=== PATIENT | female | born 1945 | race Caucasian/White ===

== ENCOUNTER 2018-06-22 08:36 | Day surgery (SDC) | payer OTHER, BC ==
--- OUTSIDE RECORDS SUMMARY | 2018-06-22 08:38 | XMS REPORT ---
:1945 [facility] Address [address] [place] [address] [address] [place] [address] Care Team Providers Name Role Phone YUSUF ALVARADO Unavailable Unavailable Problems This patient has no known problems. Allergies, Adverse Reactions, Alerts This patient has no known allergies or adverse reactions. Medications This patient has no known medications. Results Test Description Test Time Test Comments Text Results Atomic Results Result Comments TISSUE EXAM 2017-09-06 Surgical Pathology Report 08:59:00 Case: [id number] Authorizing Provider: Yusuf Alvarado MD Collected: 07/27/2017 1043 Ordering Location: [facility] PERIOPERATIVE Received: 07/27/2017 1103 SERVICES Pathologist: Waylon Regalado MD Specimens: A) - Breast, Right, right breast long stitch lateral, short stitch superior B) - Lymph Node, [place], Right Axilla, sentinel lymph node # 1; ex vivo 17 REASON FOR ADDENDUM: TO REPORT ONCOTYPE DX RESULT.PERFORMED ON [id number] DX RECURRENCE SCORE RESULT : 1210-YEAR RISK OF DISTANT RECURRENCE (CARRION ALONE) : 8%See scanned Oncotype DX result reportAddendum electronically signed by Waylon Regalado MD on 09/06/2017 at 8:59 AMA. 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 - TUMOR LOCATION: 12 O'CLOCK - GREATEST MICROSCOPIC MEASUREMENT : 15 MM - HISTOLOGIC GRADE : 3/3 (3 + 2 + 3) BY ESBR CRITERIA - MITOTIC COUNT: 23 MITOSES PER 10 HPF'S - NO LYMPHOVASCULAR INVASION IS SEEN - SURGICAL MARGINS : NEGATIVE - SUPERFICIAL SUPERIOR MARGIN : 6 MM - ALL OTHERS MARGINS > 10MM - DUCTAL CARCINOMA IN SITU - GREATEST MICROSCOPIC MEASUREMENT : 10 MM - NUCLEAR GRADE : 2/3 BY SBR CRITERIA - GROWTH PATTERN : SOLID - CENTRAL NECROSIS IS IDENTIFIED - ASSOCIATED WITH FOCAL CALCIFICATIONS - SURGICAL MARGINS : NEGATIVE - SUPERFICIAL SUPERIOR MARGIN: 7 MM - ALL OTHER MARGINS > 10MM - BIOPSY SITE CHANGES (CLIP X 1) IDENTIFIED - APOCRINE METAPLASIA - REMOTE SCARRING AND REACTIVE CHANGES - BENIGN BREAST TISSUE ASSOCIATED WITH CALCIFICATIONS - BENIGN SKIN AND NIPPLEB. LYMPH NODE, RIGHT AXILLARY, SENTINEL #1, EX VIVO 17, BIOPSY: - ONE LYMPH NODE, NEGATIVE FOR CARCINOMA (0/1) Signing Pathologist Direct Phone Line: [phone] signed by Waylon Regalado MD on 08/02/2017 at 10:29 AMTUMOR STAGING (PATHOLOGY)Anatomic site of tumor: Right breast Histologic type: Infiltrating ductal carcinoma, no special typeHistologic grade: 3/3 by SBR criteria Tumor size: 15 mm Primary tumor (T): pT1c Lymph node (N): pN0 (sn)Stage grouping: IA Margins: NegativeLYMPH NODE SUMMARY Total number of sentinel lymph nodes: 1Total number of non-sentinel lymph nodes: 0 Total number of positive sentinel lymph nodes: 0INVASIVE CARCINOMA OF THE BREAST (Breast Invasive - All Specimens)CLINICAL Radiologic Finding: Mass or architectural distortionSPECIMEN Procedure: Total mastectomy (including nipple and skin) Lymph Node Sampling: [place] lymph node(s) Specimen Laterality: RightTUMOR Specify Clock Position of Tumor Site: 12 o'clock Presence of Invasive Carcinoma: Histologic Type: Invasive mammary carcinoma of no special type (ductal, not otherwise specified) Histologic Grade ([place] Histologic Score): Glandular (Acinar) / Tubular Differentiation: Score 3 (< 10% of tumor area forming glandular / tubular structures) Nuclear Pleomorphism: Score 2 (Cells larger than normal with open vesicular nuclei, visible nucleoli, and moderate variability in both size and shape) Mitotic Rate: Score 3 (>=8 mitoses per mm2) Overall Grade: Grade 3 (scores of 8 or 9) Ductal Carcinoma In Situ (DCIS): DCIS is present Ductal Carcinoma In Situ (DCIS): Negative for extensive intraductal component (EIC) Estimated Size (extent) of DCIS (greatest dimension using gross and microscopic evaluation) is at Least (mm): 10 mm Architectural Patterns: [place] Architectural Patterns: Solid Nuclear Grade: Grade II (intermediate) Necrosis: Present, central (expansive 'comedo' necrosis) Lobular Carcinoma In Situ (LCIS): Not identified Tumor Size / Focality: Tumor Size: Size of Largest Invasive Carcinoma: Greatest dimension of largest focus of invasion > 1 mm Greatest Dimension (mm): 15 mm Skin: Lymph-Vascular Invasion: Not identified Dermal Lymph-Vascular Invasion: Not identified Microcalcifications: Present in DCIS Microcalcifications: Present in nonneoplastic tissue Treatment Effect: Response to Presurgical (Neoadjuvant) Therapy: No known presurgical therapyMARGINS Invasive Carcinoma: Margins uninvolved by invasive carcinoma Distance from Closest Margin: Distance (specify in mm): 6 Closest Uninvolved Margin: Other (specify margin): superficial superior Ductal Carcinoma In Situ (DCIS): Margins uninvolved by DCIS (DCIS present in specimen) Distance of DCIS from Closest Margin (mm): Distance (specify in mm): 7 mm Closest Uninvolved Margin(s): Other (specify margin): superficial superiorLYMPH NODES Regional Lymph Nodes: [place] Node Status: [place] lymph node biopsy performed Number of [place] Nodes Examined: Specify number: 1 Method of Evaluation of [place] Lymph Node(s): H&E, multiple levels Number of Lymph Node(s) Examined (sentinel and nonsentinel): Specify number: 1STAGE (pTNM) Primary Tumor (Invasive Carcinoma) (pT): pT1c: Tumor > 10 mm but <=20 mm in greatest dimension Modifier: (sn): Only sentinel node(s) evaluated. If 6 or more nodes (sentinel or nonsentinel) are removed, this modifier should not be used. Category (pN): pN0: No regional lymph node metastasis identified histologicallyA. 38035 x 1; 71920 x 1B. 56495 x 1Malignant neoplasm of right breastA. Right breast. B. Right axillary sentinel lymph node #1Specimen A: The specimen is received fresh for intraoperative gross consultation labeled with the patient's name, accession number and "right breast". It consists of a 279 gm, 14 cm from superior to inferior, 17 cm from medial to lateral, and 4.5 cm from superficial to deep, right mastectomy specimen. There is an attached mims-white skin measuring 13 x 5.4 cm. The areola is 3.0 x 2.5 cm. The nipple is everted and measures 0.7 x 0.1 x 0.8 cm. The specimen is oriented with a short stitch designating superior and a long stitch designating lateral.The specimen is serially sectioned from medial to lateral into 11 slices. The cut section shows a mims-white, firm, irregular mass in slices 7 and 8. A wing shaped metal clip is identified in slice 8 in association with the mass. The mass measures 1.5 cm from superior to inferior, 2.8 cm from lateral, and 2 cm from superficial to deep. It is located 0.4 cm from superficial superior, 5 cm from superficial inferior and 2.5 cm from deep margin. The nipple is located in slice #9.The remaining breast parenchyma is composed of 80% adipose and 20% fibrous tissue. No other masses or lesions are seen.Ink code: Superficial superior-blue, superficial inferior-red, deep-black.Section code: Bookkeeping Clerks Supervisor sections are submitted as follows. A1, nipple slice #9 bisected; A2-A4, slice 8, mass to superficial superior margin (A4 area of clip); A5, slice 8 closest deep margin; A6, slice 8 area around the mass; A7, slice 8 area superior to the mass, superficial superior margin; A8, slice 8 closest superficial inferior margin; A9, slice 7 mass to superficial superior margin; A10, slice 7 closest deep margin; A11, slice 7 closest superficial inferior margin; A12, slice 7 fibrous tissue inferior to the mass slice 7; A13, fibrous tissue superior to the mass slice 7 to include superficial superior margin; A14, slice 7 fibrous tissue slice 9 area lateral to the mass; A16, slice 9 fibrous tissue; A17, slice 9 deep margin; A18, fibrous tissue slice 9 fibrous tissue subareolar; A19, slice 6 area medial to the mass; A19, slice 5 random upper inner quadrant; A20, slice 6 random lower inner quadrant; A21, slice 10 upper outer quadrant; A22, slice 7 lower outer quadrant.Specimen B: Received in formalin labeled "lymph node, sentinel, right axilla #1" is a 2.5 x 1.5 x 0.3 cm, pink-mims to yellow, irregular lymph node. The specimen is bisected and entirely submitted in cassettes B1-B2. DB/ew INTRAOPERATIVE GROSS CONSULTATION:BREAST, RIGHT, MASTECTOMY: - MASS AND CLIP IDENTIFIED - CLOSEST SUPERFICIAL SUPERIOR MARGIN APPROXIMATELY 4 MM - REPORTED BY DR. Malena REGALADO TO DR. ALVARADO ON 07/27/17 AT 11:05 A.M.A-B: Performed.[facility], Department of Pathology, [address] [place] [address], [place] [address], SENTINEL NODE 2017-07-27 Reason for FINAL REPORT PATIENT ID: INJECTION, 09:54:00 exam:->right [id number] PROCEDURE: SENTINEL NON-IMAGING breast NODE LOCALIZATION - NON IMAGING INDICATION: Right breast cancer PROTOCOL: A total of 1.2 mCi of Tc-99m tilmanocept was injected in the right breast by the nuclear process engineer. One aliquot was injected subcutaneously in the subareolar area. IMPRESSION: Radiopharmaceutical injection for intraoperative sentinel node localization. Signed: Mark Daugherty MDReport Verified Date/Time: 07/27/2017 09:54:19 Reading Location: [address] Reading Room
--- OUTSIDE RECORDS SUMMARY | 2018-06-22 08:38 | XMS REPORT | Clinical Summary ---
:1945 Author Organization [facility] Address [address] [place] [address] Phone Care Team Providers Name Role Phone Unavailable Primary Care Provider Unavailable Allergies Active Allergy Reactions Severity Noted Date Comments Sulfa (Sulfonamide Other (See Comments) 07/26/2017 Happened in childhood, Antibiotics) was not told what reaction Current Medications Prescription Sig. Disp. Refills Start Date End Date Status losartan (COZAAR) 50 Take 50 mg by Active MG tablet mouth daily. alendronate (FOSAMAX) Take 70 mg by Active 70 MG tablet mouth every 7 days Take in the morning with a full glass of water, on an empty stomach, and do not take anything else by mouth or lie down for the next 30 min. . albuterol HFA Inhale 1 puff by Active (VENTOLIN HFA) 90 mouth via mcg/actuation inhaler inhaler every 6 (six) hours as needed for Wheezing. traMADol (ULTRAM) 50 Take 1 tablet 30 tablet 0 07/28/2017 08/07/2017 mg tablet (50 mg total) by mouth every 6 (six) hours as needed for up to 10 days. Max Daily Amount: 200 mg Active Problems Problem Noted Date Breast mass, right 07/27/2017 Breast cancer (HCC) 07/27/2017 Encounters Date Type Specialty Care Team Description 07/27/2017 - Hospital Encounter General Internal Karma Carter 07/28/2017 Medicine MD Roxane 07/27/2017 Procedure Pass 07/27/2017 Surgery Karma Carter MASTECTOMY,PARTIAL/L MD [place]oxane UMPECTOMY 07/26/2017 Hospital Encounter Pre-Admission Testing 07/26/2017 Anesthesia Event Jt Cedillo MD after 06/21/2017 Social History Tobacco Use Types Packs/Day Years Used Date Current Every Day Smoker 0.5 Smokeless Tobacco: Never Used Tobacco Cessation: Ready to Quit: Yes Comments: HANDOUT TO BE GIVEN DOS Alcohol Use Drinks/Week oz/Week Comments No Sex Assigned at Date Recorded Not on file Last Filed Vital Signs Vital Sign Reading Time Taken Blood Pressure 122/66 07/28/2017 8:00 AM CDT Pulse 73 07/28/2017 8:00 AM CDT Temperature 36.6 C (97.8 F) 07/28/2017 8:00 AM CDT Respiratory Rate 17 07/28/2017 8:00 AM CDT Oxygen Saturation 94% 07/28/2017 8:00 AM CDT Inhaled Oxygen Concentration - - Weight 58.2 kg (128 lb 6.4 oz) 07/27/2017 7:02 AM CDT Height 175.3 cm (5' 9") 07/27/2017 7:02 AM CDT Body Mass Index 18.96 07/27/2017 7:02 AM CDT Plan of Treatment Not on file Procedures Procedure Name Priority Date/Time Associated Diagnosis Comments MASTECTOMY,PARTIAL/LUM 07/27/2017 9:30 AM Malignant neoplasm of PECTOMY CDT right female breast, unspecified estrogen receptor status, unspecified site of breast (HCC) after 06/21/2017 Results INTRAOPERATIVE PATH REPORT - SCAN (08/05/2017 1:11 PM)Tissue Exam (07/27/2017 10:43 AM) Component Value Ref Range Case Report Surgical Pathology Report Case: [id number] Authorizing Provider:Karma Carter MD Collected: 07/27/2017 1043 Ordering Location: [facility] PERIOPERATIVE Received: 07/27/2017 1103 SERVICES Pathologist: Waylon Regalado MD Specimens: A) - Breast, Right, right breast long stitch lateral, short stitch superior B) - Lymph Node, [place], Right Axilla, sentinel lymph node # 1; ex vivo 17 ADDENDUM REASON FOR ADDENDUM: TO REPORT ONCOTYPE DX RESULT. PERFORMED ON [id number] ONCOTYPE DX RECURRENCE SCORE RESULT : 12 10-YEAR RISK OF DISTANT RECURRENCE (CARRION ALONE) : 8% See scanned Oncotype DX result report DIAGNOSIS A. BREAST, RIGHT, TOTAL MASTECTOMY: - INFILTRATING DUCTAL [...] ASSOCIATED WITH CALCIFICATIONS - BENIGN SKIN AND NIPPLE B. LYMPH NODE, RIGHT AXILLARY, SENTINEL #1, EX VIVO 17, BIOPSY: - ONE LYMPH NODE, NEGATIVE FOR CARCINOMA (0/1) Signing Pathologist Direct Phone Line: [phone] COMMENT TUMOR STAGING (PATHOLOGY) Anatomic site of tumor: Right breast Histologic type: Infiltrating ductal carcinoma, no special type Histologic grade: 3/3 by SBR criteria Tumor size:15 mm Primary tumor (T): pT1c Lymph node (N): pN0 (sn) Stage grouping: IA Margins: Negative LYMPH NODE SUMMARY Total number of sentinel lymph nodes: 1 Total number of non-sentinel lymph nodes: 0 Total number of positive sentinel lymph nodes: 0 SYNOPTIC REPORT INVASIVE CARCINOMA OF THE BREAST(Breast Invasive - All Specimens) CLINICAL Radiologic Finding:Mass or architectural distortion SPECIMEN Procedure:Total mastectomy (including nipple and skin) Lymph Node Sampling:[place] lymph node(s) Specimen Laterality:Right TUMOR Specify Clock Position of Tumor Site:12 o'clock Presence of Invasive Carcinoma: Histologic Type:Invasive mammary carcinoma of no special type (ductal, not otherwise specified) Histologic Grade ([place] Histologic Score): Glandular (Acinar) / Tubular Differentiation:Score 3 (< 10% of tumor area forming glandular / tubular structures) Nuclear Pleomorphism:Score 2 (Cells larger than normal with open vesicular nuclei, visible nucleoli, and moderate variability in both size and shape) Mitotic Rate:Score 3 (>=8 mitoses per mm2) Overall Grade:Grade 3 (scores of 8 or 9) Ductal Carcinoma In Situ (DCIS):DCIS is present Ductal Carcinoma In Situ (DCIS):Negative for extensive intraductal component (EIC) Estimated Size (extent) of DCIS (greatest dimension using gross and microscopic evaluation) is at Least (mm):10 mm Architectural Patterns:[place] Architectural Patterns:Solid Nuclear Grade:Grade II (intermediate) Necrosis:Present, central (expansive 'comedo' necrosis) Lobular Carcinoma In Situ (LCIS):Not identified Tumor Size / Focality: Tumor Size: Size of Largest Invasive Carcinoma:Greatest dimension of largest focus of invasion > 1 mm Greatest Dimension (mm):15 mm Skin: Lymph-Vascular Invasion:Not identified Dermal Lymph-Vascular Invasion:Not identified Microcalcifications:Present in DCIS Microcalcifications:Present in nonneoplastic tissue Treatment Effect: Response to Presurgical (Neoadjuvant) Therapy: No known presurgical therapy MARGINS Invasive Carcinoma:Margins uninvolved by invasive carcinoma Distance from Closest Margin:Distance (specify in mm): 6 Closest Uninvolved Margin:Other (specify margin): superficial superior Ductal Carcinoma In Situ (DCIS):Margins uninvolved by DCIS ( DCIS present in specimen) Distance of DCIS from Closest Margin (mm):Distance (specify in mm): 7 mm Closest Uninvolved Margin(s):Other (specify margin): superficial superior LYMPH NODES Regional Lymph Nodes: [place] Node Status:[place] lymph node biopsy performed Number of [place] Nodes Examined:Specify number: 1 Method of Evaluation of [place] Lymph Node(s):H&E, multiple levels Number of Lymph Node(s) Examined (sentinel and nonsentinel): Specify number: 1 STAGE (pTNM) Primary Tumor (Invasive Carcinoma) (pT):pT1c: Tumor > 10 mm but <=20 mm in greatest dimension Modifier:(sn): Only sentinel node(s) evaluated. If 6 or more nodes (sentinel or nonsentinel) are removed, this modifier should not be used. Category (pN):pN0: No regional lymph node metastasis identified histologically CPT Code(s) A. 50790 x 1; 42341 x 1 B. 54277 x 1 CLINICAL HISTORY Malignant neoplasm of right breast SPECIMEN SOURCE A. Right breast. B. Right axillary sentinel lymph node #1 GROSS DESCRIPTION Specimen A: The specimen is received fresh for intraoperative gross consultation labeled with the patient's name,accession number and "right breast". It consists of [...] designating superior and a long stitch designating lateral. The specimen is serially sectioned from medial to lateral into 11 slices. The cut section shows a mims-white, firm, irregular mass in slices 7 and 8. A wing shaped metal clip is identified in slice 8 in association with the mass. The mass measures 1.5 cm from superior to inferior , 2.8 cm from lateral, and 2 cm from superficial to deep. It is located 0.4 cm from superficial superior, 5 cm from superfici al inferior and 2.5 cm from deep margin. The nipple is located in slice #9. The remaining breast parenchyma is composed of 80% adipose and 20% fibrous tissue. No other masses or lesions are seen. Ink code: Superficial superior-blue, superficial inferior-red, deep-black. Section code: Electrical Panel Builder sections are submitted as follows. A1, nipple slice #9 bisected; A2-A4, slice 8, mass to superficial superior margin (A4 area of clip); A5, slice 8 closest deep margin; A6, slice 8 area around the mass; A7, slice 8 area superior to the mass, superficial superior margin; A8, slice 8 closest superficial inferior margin; A9 , slice 7 mass to superficial superior margin; A10, s lice 7 closest deep margin; A11, slice 7 closest superficial inferior margin ; A12, slice 7 fibrous tissue inferior to the mass slice 7; A13, fibrous tissue superior to the mass slice 7 to include superf icial superior margin; A14, slice 7 fibrous tissue slice 9 area lateral to the mass; A16, slice 9 fibrous tissue; A17, slice 9 deep margin; A18, fibrous tissue slice 9 fibrous tissue subareolar; A19, sl ice 6 area medial to the mass; A19, slice 5 random upper inner quadrant; A20 , slice 6 random lower inner quadrant; A21, slice 10 upper outer quadrant; A22, slice 7 lower outer quadrant. Specimen B: Received in formalin labeled "lymph node, sentinel, right axilla #1" is a 2.5 x 1.5 x 0.3 cm, pink-mims to yellow, irregular lymph node. The specimen is bisected and entirely submitted in cassettes B1-B2. DB/ew INTRAOPERATIVE CONSULTATION INTRAOPERATIVE GROSS CONSULTATION: BREAST, RIGHT, MASTECTOMY: - MASS AND CLIP IDENTIFIED - CLOSEST SUPERFICIAL SUPERIOR MARGIN APPROXIMATELY 4 MM - REPORTED BY DR. Malena REGALADO TO ON 07/27/17 AT 11:05 A.M. MICROSCOPIC DESCRIPTION A-B: Performed. Professional component was performed [facility], at Department of Pathology, [address] [place] [address], [place] [address], Specimen Performing Laboratory Tissue - Breast, Right; Tissue - Lymph [facility] Node, [place], Right Axilla [address] [place] [id number] ANESTHESIA PERIPHERAL BLOCK (07/27/2017 9:49 AM) Narrative Franky Forman MD 07/27/20179:49 AM Peripheral Block Patient location during procedure: pre-op Start time: 07/27/2017 9:20 AM End time: 07/27/2017 9:23 AM Reason for block: procedure for pain, at surgeon's request and post-op pain management Staffing Anesthesiologist: EJ MELGAR Preanesthetic Checklist Completed: patient identified, site marked, surgical consent, pre-op evaluation, timeout performed, IV checked, risks and benefits discussed and monitors and equipment checked Peripheral Block Patient position: supine Prep: ChloraPrep Patient monitoring: operations representative, heart rate and continuous pulse ox Anesthesia block type: PECS 1 and 2. Laterality: right Injection technique: single-shot Procedures: ultrasound guided Local infiltration: ropivicaine Infiltration strength: 0.5 % Dose: 30 mL Additives: 100mcg Epi Needle Needle type: short-bevel (Pajunk) Needle gauge: 22. Needle length: 75. Assessment Injection assessment: negative aspiration for heme, no paresthesia on injection, local visualized surrounding nerve on ultrasound and incremental injection Paresthesia pain: none Heart rate change: no Slow fractionated injection: yes Additional Notes PT tolerated the procedure well Procedure Note Franky Forman MD - 07/27/2017 9:47 AM CDT Peripheral Block Patient location during procedure: pre-op Start time: 07/27/2017 9:20 AM End time: 07/27/2017 9:23 AM Reason for block: procedure for pain, at surgeon's request and post-op pain management Staffing Anesthesiologist: EJ MELGAR Preanesthetic Checklist Completed: patient identified, site marked, surgical consent, pre-op evaluation , timeout performed, IV checked, risks and benefits discussed and monitors and equipment checked Peripheral Block Patient position: supine Prep: ChloraPrep Patient monitoring: operations representative, heart rate and continuous pulse ox Anesthesia block type: PECS 1 and 2. Laterality: right Injection technique: single-shot Procedures: ultrasound guided Local infiltration: ropivicaine Infiltration strength: 0.5 % Dose: 30 mL Additives: 100mcg Epi Needle Needle type: short-bevel (Pajunk) Needle gauge: 22. Needle length: 75. Assessment Injection assessment: negative aspiration for heme, no paresthesia on injection , local visualized surrounding nerve on ultrasound and incremental injection Paresthesia pain: none Heart rate change: no Slow fractionated injection: yes Additional Notes PT tolerated the procedure well NM sentinel node study (injection only) (07/27/2017 9:35 AM) Specimen Performing Laboratory [facility] Narrative FINAL REPORT PROCEDURE: SENTINEL NODE LOCALIZATION - NON IMAGING INDICATION: Right breast cancer PROTOCOL: A total of 1.2 mCi of Tc-99m tilmanocept was injected in the right breast by the nuclear radiologist.One aliquot was injected subcutaneously in the subareolar area. IMPRESSION: Radiopharmaceutical injection for intraoperative sentinel node localization. Signed: Mark Daugherty MD Report Verified Date/Time:07/27/2017 09:54:19 Reading Location: [address] Reading Room Procedure Note Interface, External Ris In - 07/27/2017 9:56 AM CDT FINAL REPORT PROCEDURE: SENTINEL NODE LOCALIZATION - NON IMAGING INDICATION: Right breast cancer PROTOCOL: A total of 1.2 mCi of Tc-99m tilmanocept was injected in the right breast by the nuclear radiologist. One aliquot was injected subcutaneously in the subareolar area. IMPRESSION: Radiopharmaceutical injection for intraoperative sentinel node localization. Signed: Mark Daugherty MD Report Verified Date/Time: 07/27/2017 09:54:19 Reading Location: [address] [facility] Reading Room after 06/21/2017
[2018-06-22] MEDS ORDERED: Ringers Lactate 1,000 ML IV ONE (09:03)
[2018-06-22] MEDS ORDERED: LIDOCAINE 1% MPF 2 ML AMPULE ONE (11:01)
[2018-06-22] MEDS ORDERED: PROPOFOL 200 MG/20 ML VIAL IV ONE ×2 (11:01)
--- NOTE | 2018-06-22 11:53 | ENDO RPT ---
[address], [address] COLONOSCOPY PROCEDURE REPORT EXAM DATE: 06/22/2018 PATIENT NAME: Franci Olguin MR #: [id number] BIRTHDATE: 1945 ATTENDING: Jackson Brar Dr STATUS: outpatient EXECUTIVE MARKETING ASSISTANT: Jayde Paige RN and Maryam Larson INDICATIONS: The patient is a 72 yr old Female here for a colonoscopy due to positive Cologuard, personal history of colon polyps and family history of PROCEDURE PERFORMED: Colonoscopy with biopsy - cold polypectomy and Colonoscopy with snare polypectomy MEDICATIONS: Per Anesthesia. ESTIMATED BLOOD LOSS: None CONSENT: The patient understands the risks and benefits of the procedure and understands that these risks include, but are not limited to: sedation, allergic reaction, infection, perforation and/or bleeding. Alternative means of evaluation and treatment include, among others: physical exam, x-rays, and/or surgical intervention. The patient elects to proceed with this endoscopic procedure. DESCRIPTION OF PROCEDURE: During intra-op preparation period all mechanical medical equipment was checked for proper function. Hand hygiene and appropriate measures for infection prevention was taken. Procedure, possible complications, alternatives including, but not limited to possibility of bleeding, perforation, tear, infection, sepsis, need for surgery, need for blood transfusion, were explained to the patient. After the risks, benefits and alternatives of the procedure were thoroughly explained, Informed consent was verified, confirmed and timeout was successfully executed by the treatment team. The patient was placed in the left lateral position. A digital rectal exam was performed and revealed no abnormalities of the rectum. After appropriate level of anesthesia, the scope was passed. The EC-[id number] ([id number]) endoscope was introduced through the anus and advanced to the terminal ileum which was intubated for a short distance. The quality of the prep was good. The instrument was then slowly withdrawn as the colon was fully examined. Scope withdrawal time was 8 minutes. COLON FINDINGS: A smooth flat polyp measuring 4 mm in size was found at the cecum. A biopsy was performed using cold forceps. A smooth flat polyp measuring 7 mm in size was found. A polypectomy was performed with a cold snare. A smooth flat polyp measuring 11 mm in size was found in the descending colon. A polypectomy was performed with a cold snare. Moderate sized internal hemorrhoids were found. Retroflexed views revealed medium hemorrhoids. The scope was then completely withdrawn from the patient and the procedure terminated. ADVERSE EVENTS: There were no complications. IMPRESSIONS: 1. 4 mm flat polyp at the cecum; biopsy was performed using cold forceps 2. 7 mm flat polyp, polypectomy was performed with a cold snare 3. 11 mm flat polyp measuring 11 mm in size in the descending colon; polypectomy was performed with a cold snare 4. Moderate sized internal hemorrhoids 5. Intubation to terminal ileum RECOMMENDATIONS: 1. await biopsy results 2. avoid NSAIDS for 2 weeks RECALL: Return in 1 year(s) for Colonoscopy. Jackson Barr Dr eSigned: Jackson Barr Dr 06/22/2018 11:30 AM cc: Rob Rivera CPT CODES: ICD9 CODES: 211.3 Benign neoplasm of colon PATIENT NAME: Franci Olguin MR#: [id number]
[2018-06-22 12:19] VITALS: TEMP 97.8
[2018-06-22 12:20] VITALS: BP 131/81; O2SAT 99
== END 2018-06-22 12:05 | disposition home or self-care (01) ==
LOC: ENDO 08:36
PROVIDERS: ATTEND Internal Medicine Gastroenterology
PROC: 0DBM8ZX Excision of Descending Colon, Via Natural or Artificial Opening Endoscopic, Diagnostic (ICD-10-PCS; 2018-06-22)
PROC: 0DBH8ZX Excision of Cecum, Via Natural or Artificial Opening Endoscopic, Diagnostic (ICD-10-PCS; principal; 2018-06-22 12:45)
DX: D12.0 Benign neoplasm of cecum (principal); D12.4 Benign neoplasm of descending colon; K64.8 Other hemorrhoids; I10 Essential (primary) hypertension; J44.9 Chronic obstructive pulmonary disease, unspecified; M19.90 Unspecified osteoarthritis, unspecified site; F17.200 Nicotine dependence, unspecified, uncomplicated; Z86.010 Personal history of colon polyps; Z85.3 Personal history of malignant neoplasm of breast; Z88.2 Allergy status to sulfonamides; Z80.0 Family history of malignant neoplasm of digestive organs
CPT/HCPCS: 45380; 45385; 88305; J2001

== ENCOUNTER 2018-10-15 15:57 | Emergency (ER) | payer OTHER, BC ==
--- OUTSIDE RECORDS SUMMARY | 2018-10-15 15:59 | XMS REPORT ---
:1945 [facility] Address [address] [place] [address] Dr. Giles [address] [place] [id number] Care Team Providers Name Role Phone YUSUF ALVARADO Unavailable Unavailable Problems This patient has no known problems. Allergies, Adverse Reactions, Alerts This patient has no known allergies or adverse reactions. Medications This patient has no known medications. Results Test Description Test Time Test Comments Text Results Atomic Results Result Comments TISSUE EXAM 2017-09-06 Surgical Pathology Report 08:59:00 Case: [id number] Authorizing Provider: Yusuf Alvarado MD Collected: 07/27/2017 1043 Ordering Location: [facility] Received: 07/27/2017 1103 SERVICES Pathologist: Waylon Regalado MD Specimens: A) - Breast, Right, right breast long stitch lateral, short stitch superior B) - Lymph Node, Marion, Right Axilla, sentinel lymph node # 1; ex vivo 17 REASON FOR ADDENDUM: TO REPORT ONCOTYPE DX RESULT.PERFORMED ON [id number] DX RECURRENCE SCORE RESULT : 1210-YEAR RISK [...] CARCINOMA (0/1) Signing Pathologist Direct Phone Line: [phone] signed by Waylon Regalado MD on 08/02/2017 [...] (including nipple and skin) Lymph Node Sampling: Marion lymph node(s) Specimen Laterality: RightTUMOR Specify Clock Position of Tumor Site: 12 o'clock Presence of Invasive Carcinoma: Histologic Type: Invasive mammary carcinoma of no special type (ductal, not otherwise specified) Histologic Grade ([place] Histologic Score): Glandular (Acinar) / Tubular Differentiation: [...] margin): superficial superiorLYMPH NODES Regional Lymph Nodes: Marion Node Status: Marion lymph node biopsy performed Number of Marion Nodes Examined: Specify number: 1 Method of Evaluation of Marion Lymph Node(s): H&E, multiple levels Number of [...] No regional lymph node metastasis identified histologicallyA. 11799 x 1; 53937 x 1B. 34498 x 1Malignant neoplasm of right breastA. Right [...] code: Superficial superior-blue, superficial inferior-red, deep-black.Section code: Structural Steel Worker Apprentice sections are submitted as follows. A1, nipple [...] DR. ALVARADO ON 07/27/17 AT 11:05 A.M.A-B: Performed.[facility], Department of Pathology, [address] [place] [address], [facility] [place] [address], SENTINEL NODE 2017-07-27 Reason for FINAL REPORT PATIENT ID: INJECTION, 09:54:00 exam:->right [id number] PROCEDURE: SENTINEL NON-IMAGING breast NODE LOCALIZATION - NON IMAGING INDICATION: Right breast cancer PROTOCOL: A total of 1.2 mCi of Tc-99m tilmanocept was injected in the right breast by the pet technologist. One aliquot was injected subcutaneously in the subareolar area. IMPRESSION: Radiopharmaceutical injection for intraoperative sentinel node localization. Signed: Mark Daugherty MDReport Verified Date/Time: 07/27/2017 09:54:19 Reading Location: [address] Reading Room
--- OUTSIDE RECORDS SUMMARY | 2018-10-15 15:59 | XMS REPORT | Clinical Summary ---
:1945 Author Organization [facility] Address [address] [place] [address] Care Team Providers Name Role Phone Rob Rivera Primary Care Provider Allergies Active Allergy Reactions Severity Noted Date Comments Sulfa (Sulfonamide Other (See Comments) 07/26/2017 Happened in childhood, Antibiotics) was not told what reaction Medications Medication Sig Dispensed Refills Start Date End Date Status losartan (COZAAR) 50 Take 50 mg by 0 Active MG tablet mouth daily. alendronate (FOSAMAX) Take 70 mg by 0 Active 70 MG tablet mouth every 7 days Take in the morning with a full glass of water, on an empty stomach, and do not take anything else by mouth or lie down for the next 30 min. . albuterol HFA Inhale 1 puff by 0 Active (VENTOLIN HFA) 90 mouth via inhaler mcg/actuation inhaler every 6 (six) hours as needed for Wheezing. Active Problems Problem Noted Date Breast mass, right 07/27/2017 Breast cancer 07/27/2017 Social History Tobacco Use Types Packs/Day Years Used Date Current Every Day Smoker 0.5 Smokeless Tobacco: Never Used Tobacco Cessation: Ready to Quit: Yes Comments: HANDOUT TO BE GIVEN DOS Alcohol Use Drinks/Week oz/Week Comments No Sex Assigned at Date Recorded Not on file Job Start Date Occupation Industry Not on file Not on file Not on file Travel History Travel Start Travel End No recent travel history available. Last Filed Vital Signs Not on file Plan of Treatment Not on file Results Not on fileafter 10/14/2017 Insurance Payer Benefit Plan / Subscriber ID Type Phone Address Group MEDICARE MEDICARE A B xxxxxxxxxx Medicare BLUE CROSS/BLUE BCBS INDEMNITY [place] xxxxxxxxxxxx PPO [phone] [address] [place] [address] Advance Directives For more information, please contact:[place] [id number] [place], [place] [phone] Code Status Date Activated Date Inactivated Comments Full Code 07/27/2017 6:46 AM 07/28/2017 1:44 PM This code status was determined by: Patient
[2018-10-15] MEDS ORDERED: ACETAMINOPHEN 500 MG TAB ONE (19:52)
--- NOTE | 2018-10-15 20:29 | RAD REPORT ---
EXAM DESCRIPTION: RAD - Ankle Right 3 View - 10/15/2018 8:18 pm CLINICAL HISTORY: Right ankle pain status post fall FINDINGS: A mildly displaced spiral fracture involves the lateral malleolus. No dislocation seen
--- NOTE | 2018-10-15 21:25 | ER ---
Nurse's Notes [facility] Name: Franci Olguin Age: 73 yrs Sex: Female : 1945 Arrival Date: 10/15/2018 Time: 16:00 Bed 8 Private MD: Rob Rivera V Diagnosis: Right distal fibular fracture Presentation: 10/15 16:17 Presenting complaint: Patient states: Reports right ankle pain and swelling, and aj episode of syncope while grocery shopping today at 1300. Patient evaluated by EMS on scene. Transition of care: patient was not received from another setting of care. Onset of symptoms was October 15, 2018. Risk Assessment: Do you want to hurt yourself or someone else? Patient reports no desire to harm self or others. Initial Sepsis Screen: Does the patient meet any 2 criteria? No. Patient's initial sepsis screen is negative. Does the patient have a suspected source of infection? No. Patient's initial sepsis screen is negative. Care prior to arrival: None. 16:17 Method Of Arrival: Ambulatory 16:17 Acuity: REI 3 Triage Assessment: 16:20 General: Appears in no apparent distress. comfortable, Behavior is calm, cooperative, aj appropriate for age. Pain: Complains of pain in right ankle and anterior aspect of right ankle. Neuro: Level of Consciousness is awake, alert, obeys commands, Oriented to person, place, time, situation, Appropriate for age. Respiratory: No deficits noted. Airway is patent Respiratory effort is even, unlabored, Respiratory pattern is symmetrical, tachypnea the patient has mild shortness of breath. Derm: Skin is intact, is healthy with good turgor, Skin is pink, warm \T\ dry. normal. Musculoskeletal: Reports pain in right ankle. Historical: - Allergies: 16:20 Sulfa (Sulfonamide Antibiotics); aj - Home Meds: 16:20 losartan oral oral [Active]; letrozole 2.5 mg oral tab 1 tab once daily [Active]; aj ellindrate [Active]; Ventolin Rotahaler/Rotacaps Inhl [Active]; - PMHx: 16:20 COPD; Hypertension; aj - PSHx: 16:20 ; Tonsillectomy; Appendectomy; Adenoids; Lumpectomy; isthmusectomy; aj Mastectomy, Right; - Immunization history:: Adult Immunizations up to date. - Social history:: Smoking status: Patient uses tobacco products, smokes one pack cigarettes per day. - Ebola Screening: : Patient negative for fever greater than or equal to 101.5 degrees Fahrenheit, and additional compatible Ebola Virus Disease symptoms Patient denies exposure to infectious person Patient denies travel to an Ebola-affected area in the 21 days before illness onset No symptoms or risks identified at this time. - Family history:: not pertinent. - Hospitalizations: : No recent hospitalization is reported. Screenin:46 Abuse screen: Denies threats or abuse. Nutritional screening: No deficits noted. jd3 Tuberculosis screening: No symptoms or risk factors identified. Fall Risk Fall in past 12 months (25 points). Ambulatory Aid- None/Bed Rest/Nurse Assist (0 pts). Gait- Normal/Bed Rest/Wheelchair (0 pts) Mental Status- Oriented to own ability (0 pts). Total Prince Fall Scale indicates Low Risk Score (25-44 pts). Fall prevention measures have been instituted. Side Rails Up X 2 Placed close to Nursing Station Frequent Obs/Assesments occuring Family Present and informed to notify staff if they need to leave bedside. Assessment: 19:23 General: Appears in no apparent distress. uncomfortable, Behavior is calm, cooperative, jd3 appropriate for age. Pain: Complains of pain in right ankle Quality of pain is described as aching. Neuro: Level of Consciousness is awake, alert, obeys commands, Oriented to person, place, time, situation, Appropriate for age Reports a syncopal episode. Cardiovascular: Capillary refill < 3 seconds Patient's skin is warm and dry. Respiratory: Airway is patent Respiratory effort is even, unlabored, Respiratory pattern is regular, symmetrical, Breath sounds are clear bilaterally. GI: No signs and/or symptoms were reported involving the gastrointestinal system. Abdomen is round. : No signs and/or symptoms were reported regarding the genitourinary system. EENT: No signs and/or symptoms were reported regarding the EENT system. Derm: Skin is intact, Skin is dry, Skin is normal, Skin temperature is warm. Musculoskeletal: Circulation, motion, and sensation intact. Range of motion: limited in right ankle. 20:58 Reassessment: Patient appears in no apparent distress at this time. Patient and/or jd3 family updated on plan of care and expected duration. Pain level reassessed. Patient is alert, oriented x 3, equal unlabored respirations, skin warm/dry/pink. Vital Signs: 16:20 BP 189 / 112; Pulse 96; Resp 23; Temp 98.0; Pulse Ox 97% on R/A; Weight 55.34 kg; aj Height 5 ft. 7 in. (170.18 cm); 19:47 BP 155 / 97; Pulse 75; Resp 18 S; Pulse Ox 96% on R/A; jd3 20:58 BP 153 / 92; Pulse 74; Resp 15 S; Pulse Ox 100% on R/A; jd3 21:26 BP 153 / 106; Pulse 96; Resp 18; Temp 98.5(O); Pulse Ox 97% on R/A; mw2 16:20 Body Mass Index 19.11 (55.34 kg, 170.18 cm) aj ED Course: 16:00 Patient arrived in ED. mr 16:01 Rob Rivera MD is Private Physician. mr 16:19 Triage completed. aj 16:20 Arm band placed on right wrist. Patient placed in waiting room, Patient notified of wait time. X-ray ordered. 19:09 Jackson Doe MD is Attending Physician. wa 19:18 Desean Ceron RN is Primary Nurse. jd3 19:46 Patient has correct armband on for positive identification. Placed in gown. Bed in low jd3 position. Call light in reach. Side rails up X2. Adult w/ patient. 20:09 X-ray completed. Portable x-ray completed in exam room. Patient tolerated procedure sg4 well. 20:10 XRAY Ankle RIGHT 3 view In Process Unspecified. EDMS 20:10 XRAY Ankle RIGHT 3 view Sent. jd3 21:24 Manuel Wong MD is Referral Physician. wa 21:41 No provider procedures requiring assistance completed. Patient did not have IV access jd3 during this emergency room visit. Administered Medications: 19:44 Not Given (Patient Refused): Tylenol 1000 mg PO once jd3 Outcome: 21:25 Discharge ordered by . wa 21:42 Discharged to home ambulatory. jd3 21:42 Condition: stable 21:42 Discharge instructions given to patient, family, Instructed on discharge instructions, follow up and referral plans. Demonstrated understanding of instructions, follow-up care. 21:43 Patient left the ED. jd3 Signatures: Dispatcher [employer] Mayela Manrique RN RN aj Dustin, Monique mr Brook, MD MD kristan Paz Jonathon, RN RN jd3 [place]brook, Brigette lynn Sivan Stone 4 Corrections: (The following items were deleted from the chart) 19:26 19:23 Musculoskeletal: Circulation, motion, and sensation intact. Range of motion: jd3 intact in all extremities, jd3
--- NOTE | 2018-10-15 21:25 | EDPHYS ---
Physician Documentation [facility] Name: Franci Olguin Age: 73 yrs Sex: Female : 1945 Arrival Date: 10/15/2018 Time: 16:00 Bed 8 Private MD: Rob Rivera V ED Physician Jackson Doe HPI: 10/15 19:23 This 73 yrs old Female presents to ER via Ambulatory with complaints of wa Fainting, Ankle Swelling. 19:23 The patient presents with an injury, pain, that is acute, swelling, tenderness. The wa complaints affect the right ankle. Onset: The symptoms/episode began/occurred today, In the afternoon. Context: The problem was sustained at a store, resulted from the patient falling, while walking, The mechanism of injury is unknown. The patient can partially bear weight on the affected extremity. the patient is able to ambulate, pt states was at [employer] walking around long time looking of on sale items. h/o COPD. at check out, had a syncopal episode. states got dizzy right before it occurred. denies chest pain or SOB. denies dizziness or other symptoms after the episode. denies chest pain, SOB, dizziness or feeling faint at the moment. only c/o right ankle swelling and pain. Associated signs and symptoms: Pertinent negatives: fever, nausea, vomiting, weakness. Modifying factors: The symptoms are alleviated by nothing, the symptoms are aggravated by weight bearing. Severity of symptoms: At their worst the symptoms were moderate, in the emergency department the symptoms are unchanged. The patient has not experienced similar symptoms in the past. The patient has not recently seen a physician. as noted above. Historical: - Allergies: 16:20 Sulfa (Sulfonamide Antibiotics); aj - Home Meds: 16:20 losartan oral oral [Active]; letrozole 2.5 mg oral tab 1 tab once daily [Active]; aj ellindrate [Active]; Ventolin Rotahaler/Rotacaps Inhl [Active]; - PMHx: 16:20 COPD; Hypertension; aj - PSHx: 16:20 ; Tonsillectomy; Appendectomy; Adenoids; Lumpectomy; isthmusectomy; aj Mastectomy, Right; - Immunization history:: Adult Immunizations up to date. - Social history:: Smoking status: Patient uses tobacco products, smokes one pack cigarettes per day. - Ebola Screening: : Patient negative for fever greater than or equal to 101.5 degrees Fahrenheit, and additional compatible Ebola Virus Disease symptoms Patient denies exposure to infectious person Patient denies travel to an Ebola-affected area in the 21 days before illness onset No symptoms or risks identified at this time. - Family history:: not pertinent. - Hospitalizations: : No recent hospitalization is reported. ROS: 19:32 Constitutional: Negative for fever, chills, and weight loss, Eyes: Negative for injury, wa pain, redness, and discharge, ENT: Negative for injury, pain, and discharge, Neck: Negative for injury, pain, and swelling, Cardiovascular: Negative for chest pain, palpitations, and edema, Respiratory: Negative for shortness of breath, cough, wheezing, and pleuritic chest pain, Abdomen/GI: Negative for abdominal pain, nausea, vomiting, diarrhea, and constipation, Back: Negative for injury and pain, : Negative for injury, bleeding, discharge, and swelling, Skin: Negative for injury, rash, and discoloration, Psych: Negative for depression, anxiety, suicide ideation, homicidal ideation, and hallucinations. 19:32 MS/extremity: Positive for pain, swelling, tenderness, of the right ankle. 19:32 Neuro: Positive for syncope, Negative for altered mental status, dizziness, seizure activity, speech changes, visual changes, weakness. 19:32 All other systems are negative. Exam: 19:33 Constitutional: This is a well developed, well nourished patient who is awake, alert, wa and in no acute distress. Head/Face: Normocephalic, atraumatic. Eyes: Pupils equal round and reactive to light, extra-ocular motions intact. Lids and lashes normal. Conjunctiva and sclera are non-icteric and not injected. Cornea within normal limits. Periorbital areas with no swelling, redness, or edema. ENT: Nares patent. No nasal discharge, no septal abnormalities noted. Tympanic membranes are normal and external auditory canals are clear. Oropharynx with no redness, swelling, or masses, exudates, or evidence of obstruction, uvula midline. Mucous membranes moist. Neck: Trachea midline, no thyromegaly or masses palpated, and no cervical lymphadenopathy. Supple, full range of motion without nuchal rigidity, or vertebral point tenderness. No Meningismus. Chest/axilla: Normal chest wall appearance and motion. Nontender with no deformity. No lesions are appreciated. Cardiovascular: Regular rate and rhythm with a normal S1 and S2. No gallops, murmurs, or rubs. Normal PMI, no JVD. No pulse deficits. Respiratory: Lungs have equal breath sounds bilaterally, clear to auscultation and percussion. No rales, rhonchi or wheezes noted. No increased work of breathing, no retractions or nasal flaring. Abdomen/GI: Soft, non-tender, with normal bowel sounds. No distension or tympany. No guarding or rebound. No evidence of tenderness throughout. Back: No spinal tenderness. No costovertebral tenderness. Full range of motion. Skin: Warm, dry with normal turgor. Normal color with no rashes, no lesions, and no evidence of cellulitis. Psych: Awake, alert, with orientation to person, place and time. Behavior, mood, and affect are within normal limits. 19:33 Musculoskeletal/extremity: Extremities: grossly normal except: noted in the right ankle: pain, swelling, tenderness, tenderness, R lateral malleolus. no deformity. tender. 19:34 Neuro: Orientation: is normal, Mentation: is normal, Memory: is normal, Cranial nerves: wa grossly normal, Motor: is normal. Vital Signs: 16:20 BP 189 / 112; Pulse 96; Resp 23; Temp 98.0; Pulse Ox 97% on R/A; Weight 55.34 kg; aj Height 5 ft. 7 in. (170.18 cm); 19:47 BP 155 / 97; Pulse 75; Resp 18 S; Pulse Ox 96% on R/A; jd3 20:58 BP 153 / 92; Pulse 74; Resp 15 S; Pulse Ox 100% on R/A; jd3 21:26 BP 153 / 106; Pulse 96; Resp 18; Temp 98.5(O); Pulse Ox 97% on R/A; mw2 16:20 Body Mass Index 19.11 (55.34 kg, 170.18 cm) Procedures: 20:42 Splinting: Splint applied to right ankle using Orthoglass splint, applied by nurse. wa Examined by me, post splint application: neurovascular intact, 2+ distal pulses palpable, brisk capillary refill noted, Patient tolerated well. MDM: 19:09 Patient medically screened. wy 19:34 Differential diagnosis: fracture, sprain, will check EKG. s/p syncope. asymptomatic. pt wa does not want elaborate work up. talked her into at least an EKG. will monitor per school bus monitor while in ED. will reassess. 20:37 Data reviewed: vital signs, nurses notes. Test interpretation: by ED physician or wy midlevel provider: EKG: HR 76. LVH. no obvious ischemic changes or dysrhythmia. Test interpretation: by ED physician or midlevel provider: R ankle x-ray: Mildly displaced spiral fracture of the R lateral malleolus. ED course: will place stirrup splint. trial of crutches. if fail, may need wheelchair to maintain NWB. 20:42 Response to treatment: the patient's symptoms have markedly improved after treatment. wy 21:23 ED course: passed crutches. advised family to get wheelchair if cannot use the wy crutches. close f/u with orthopedist. 21:30 ED course: no dizziness or signs of syncope during entire ED stay. EKG wnl. wy 10/15 16:22 Order name: XRAY Ankle RIGHT 3 view; Complete Time: 20:31 10/15 19:22 Order name: EKG; Complete Time: 19:22 wy 10/15 19:22 Order name: EKG - Nurse/Tech; Complete Time: 19:41 wy 10/15 19:22 Order name: Cardiac monitoring; Complete Time: 19:40 wy 10/15 20:33 Order name: Splint - Ankle: Orthoglass: Stirrup: R ankle; Complete Time: 21:41 wy 10/15 20:43 Order name: Crutches; Complete Time: 21:41 wy Administered Medications: 19:44 Not Given (Patient Refused): Tylenol 1000 mg PO once jd3 Disposition: 10/15/18 21:25 Discharged to Home. Impression: Right distal fibular fracture. - Condition is Stable. - Discharge Instructions: Undisplaced Fibular Ankle Fracture Treated With Immobilization, Adult. - Medication Reconciliation Form, Thank You Letter, Antibiotic Education, Prescription Opioid Use form. - Follow up: Manuel Wong MD; When: 2 - 3 days; Reason: Re-evaluation by your physician. - Notes: taek tylenol for pain if needed as discussed. follow up with the bone doctor for further evaluation within 2-3 days. use crutches. do not walk on injured ankle. you may get wheelchair if unable to use crutches Signatures: Dispatcher [employer] Mayela Manrique, RN Jackson Charlton MD MD wa Davies, Jonathon, RN RN jd3 Corrections: (The following items were deleted from the chart) 21:43 21:25 10/15/2018 21:25 Discharged to Home. Impression: Right distal fibular fracture. jd3 Condition is Stable. Forms are Medication Reconciliation Form, Thank You Letter, Antibiotic Education, Prescription Opioid Use. Follow up: Manuel Wong; When: 2 - 3 days; Reason: Re-evaluation by your physician. kristan
[2018-10-15 21:57] VITALS: BP 153/106; TEMP 98.5; O2SAT 97
--- NOTE | 2018-10-16 13:32 | EKG ---
Test Date: 2018-10-15 Test Time: 19:29:55 Allergy Physician: BRENDAN MEASUREMENT RESULTS: Intervals: Rate: 76 GA: 140 QRSD: 82 QT: 394 QTc: 443 [place]: P: 85 GA: 140 QRS: 75 T: 81 INTERPRETIVE STATEMENTS: Normal sinus rhythm Possible Left atrial enlargement Left ventricular hypertrophy Abnormal ECG Compared to ECG 09/27/2014 02:06:32 Left ventricular hypertrophy now present Atrial premature complex(es) no longer present Electronically Signed On 10-16-18 13:21:49 DICE TABLE OPERATOR by Jacky Paniagua
== END 2018-10-15 21:43 | disposition home or self-care (01) ==
LOC: ER 15:57
PROC: 2W3QX1Z Immobilization of Right Lower Leg using Splint (ICD-10-PCS; principal; 2018-10-15)
DX: S82.831A Other fracture of upper and lower end of right fibula, initial encounter for closed fracture (principal); W19.XXXA Unspecified fall, initial encounter; Y93.89 Activity, other specified; Y92.512 Supermarket, store or market as the place of occurrence of the external cause; Z88.2 Allergy status to sulfonamides; I10 Essential (primary) hypertension; J44.9 Chronic obstructive pulmonary disease, unspecified; F17.210 Nicotine dependence, cigarettes, uncomplicated
CPT/HCPCS: 93005; 99283

== ENCOUNTER 2020-02-21 21:39 | Emergency (ER) | payer OTHER, BC ==
--- OUTSIDE RECORDS SUMMARY | 2020-02-21 21:42 | XMS REPORT | Clinical Summary ---
:1945 Author Organization [facility] Address [address] [place] [address] Care Team Providers Name Role Phone Nicole Christie Primary Care Provider Allergies Active Allergy Reactions Severity Noted Date Comments Sulfa (Sulfonamide Other (See Comments) 07/26/2017 H appened in childhood, Antibiotics) was not told wh at reaction Medications Medication Sig Dispensed Refills Start [...] Not on file Results Not on fileafter 02/20/2019 Insurance Payer Benefit Plan / Subscriber ID Type Phone Address Group MEDICARE MEDICARE A B xxxxxxxxxx Medicare BLUE CROSS/BLUE BCBS INDEMNITY [place] xxxxxxxxxxxx PPO [address] [place] [address] Advance Directives For more information, please contact:[place] [id number] [place], [place] [phone] Code Status Date Activated Date Inactivated Comments Full Code 07/27/2017 6:46 AM 07/28/2017 1:44 PM This code status was determined by: Patient
--- OUTSIDE RECORDS SUMMARY | 2020-02-21 21:42 | XMS REPORT ---
:1945 Author Organization [facility] t Address [address] [place] [address] Care Team Providers Name Role Phone HARSH ALVARADO Attending Clinician Unavailable HARSH ALVARADO Admitting Clinician Unavailable Problems This patient has no known problems. Allergies, Adverse Reactions, Alerts This patient has no known allergies or adverse reactions. Medications This patient has no known medications. Procedures This patient has no known procedures. Results Test Description Test Time Test Comments Results Result [facility] e Comments TISSUE EXAM 2017-09-06 Surgical Pathology 08:59:00 Report Case: [id number] Authorizing Provider: Karma Alvarado MD Collected: 07/27/2017 1043 Ordering Location: [facility] PERI[facility] Received: 07/27/2017 1103 SERVICES Pathologist: Waylon Regalado MD Specimens: A) - Breast, Right, right breast long stitch lateral, short stitch superior B) - Lymph Node, Watson, Right Axilla, sentinel lymph node # 1; ex vivo 17 REASON FOR ADDENDUM: TO REPORT ONCOTYPE DX RESULT.PERFORMED ON [id number] DX RECURRENCE SCORE RESULT : 1210-YEAR RISK [...] CARCINOMA (0/1) Signing Pathologist Direct Phone Line: [phone] ly signed by Waylon Regalado MD on 08/02/2017 [...] (including nipple and skin) Lymph Node Sampling: Watson lymph node(s) Specimen Laterality: RightTUMOR Specify Clock Position of Tumor Site: 12 o'clock Presence of Invasive Carcinoma: Histologic Type: Invasive mammary carcinoma of no special type (ductal, not otherwise specified) Histologic Grade (Kite Histologic Score): Glandular (Acinar) / Tubular Differentiation: [...] margin): superficial superiorLYMPH NODES Regional Lymph Nodes: Watson Node Status: Watson lymph node biopsy performed Number of Watson Nodes Examined: Specify number: 1 Method of Evaluation of Watson Lymph Node(s): H&E, multiple levels Number of Lymph Node(s) Examined (sentinel and nonsentinel): Specify number: 1STAGE (pTNM) Primary Tumor (Invasive Carcinoma) (pT): pT1c: Tumor > 10 mm but <= 20 mm in greatest dimension Modifier: (sn): Only sentinel node(s) evaluated. If 6 or more nodes (sentinel or nonsentinel) are removed, this modifier should not be used. Category (pN): pN0: No regional lymph node metastasis identified histologicallyA. 62001 x 1; 74430 x 1B. 64706 x 1Malignant neoplasm of right breastA. Right [...] code: Superficial superior-blue, superficial inferior-red, deep-black.Section code: Financial Aid Director sections are submitted as follows. A1, nipple [...] DR. ALVARADO ON 07/27/17 AT 11:05 A.M.A-B: Performed.[facility], Department of Pathology, [address] [place] [address], [place] [address], SENTINEL NODE 2017-07-27 Reason for FINAL REPORT PATIENT ID: INJECTION, 09:54:00 exam:->right [id number] PROCEDURE: NON-IMAGING breast SENTINEL NODE LOCALIZATION - NON IMAGING INDICATION: Right breast cancer PROTOCOL: A total of 1.2 mCi of Tc-99m tilmanocept was injected in the right breast by the radiographic technologist. One aliquot was injected subcutaneously in the subareolar area. IMPRESSION: Radiopharmaceutical injection for intraoperative sentinel node localization. Signed: Mark Daugherty MDReport Verified Date/Time: 07/27/2017 09:54:19 Reading Location: [address] Reading Room
[2020-02-21 22:42] LABS: Absolute Lymphocytes (CBC) 2.8 K/uL (0.7-4.9); Basophils % 0.6 % (0-1.3); Hematocrit 43.7 % (36.0-45.0); Lymphocytes % 35.4 % (15.3-44.8); MPV 9.4 fL (7.6-11.3); RBC Red Blood Cell Count 4.73 M/uL (3.86-4.86)
[2020-02-21 22:43] LABS: Protime INR 1.03
[2020-02-21 23:02] LABS: ALT/SGPT 26 U/L (12-78); AST/SGOT 29 U/L (15-37); Albumin 3.8 g/dL (3.4-5.0); Alkaline Phosphatase 161 U/L (45-117); BUN Blood Urea Nitrogen 17 mg/dL (7-18); Bicarbonate 29 mmol/L (21-32); Bilirubin Direct 0.1 mg/dL (0-0.2); Bilirubin Total 0.4 mg/dL (0.2-1.0); Glucose Level 114 mg/dL (74-106); Lipase 298 U/L (73-393); Magnesium 2.1 mg/dL (1.8-2.4); NT PRO-BNP 367 pg/mL (<450); Potassium 3.7 mmol/L (3.5-5.1); Protein, Total 7.7 g/dL (6.4-8.2); Sodium Level 140 mmol/L (136-145); Troponin (Emerg Dept Use Only) < 0.02 ng/mL (0.0-0.045)
[2020-02-22 00:04] LABS: Urine Appearance CLEAR; Urine Bilirubin NEGATIVE (NEG); Urine Blood NEGATIVE (NEG); Urine Color YELLOW; Urine Glucose NEGATIVE (NEG); Urine Protein NEGATIVE (NEG); Urine Specific Gravity 1.015 (1.005-1.030); Urine Urobilinogen 0.2 mg/dL (0.2-1.0)
[2020-02-22 00:06] LABS: Urine Microscopic Reflex ORDER UMIC
[2020-02-22 00:36] LABS: Urine Bacteria <20 /HPF (<20); Urine Culture Reflex Order REFLEXED; Urine RBC <5 /HPF (NONE SEEN)
--- NOTE | 2020-02-22 05:08 | ER ---
Nurse's Notes [facility] Name: Franci Olguin Age: 74 yrs Sex: Female : 1945 Arrival Date: 02/21/2020 Time: 21:41 Bed 6 Private MD: Diagnosis: Upper abdominal pain, unspecified;Chest pain, unspecified-Chest Wall Pain Presentation: 02/20 21:43 Chief complaint: Patient states: Right rib cage pain that started an hour an half ago. ao Patient has a hx of COPD and thinks it's R/T COPD. Pt also C/O SOB. Coronavirus screen: Proceed with normal triage. Ebola Screen: Patient negative for fever greater than or equal to 101.5 degrees Fahrenheit, and additional compatible Ebola Virus Disease symptoms Patient denies exposure to infectious person. Patient denies travel to an Ebola-affected area in the 21 days before illness onset. Initial Sepsis Screen: Does the patient meet any 2 criteria?. Initial Sepsis Screen: Does the patient have a suspected source of infection? No. Patient's initial sepsis screen is negative. Risk Assessment: Do you want to hurt yourself or someone else? Patient reports no desire to harm self or others. Onset of symptoms was February 21, 2020 at 20:00. 21:43 Method Of Arrival: Wheelchair ao 21:43 Acuity: REI 2 ao Historical: - Allergies: 21:47 Sulfa (Sulfonamide Antibiotics); ao - Home Meds: 21:47 ellindrate [Active]; letrozole 2.5 mg Oral tab 1 tab once daily [Active]; losartan Oral ao [Active]; Ventolin Rotahaler/Rotacaps Inhl [Active]; - PMHx: 21:47 COPD; Hypertension; Osteoporosis; ao - PSHx: 21:47 Mastectomy, Right; ao - Immunization history:: Adult Immunizations up to date. - Social history:: Smoking status: Patient reports the use of cigarette tobacco products, smokes one pack cigarettes per day. Patient/guardian denies using alcohol, street drugs. Screenin:05 Abuse screen: Denies threats or abuse. Nutritional screening: No deficits noted. ea Tuberculosis screening: No symptoms or risk factors identified. Fall Risk IV access (20 points). Assessment: 22:08 General: Appears uncomfortable, Behavior is appropriate for age. Pain: Complains of ea pain in right upper quadrant Pain does not radiate. Pain currently is 8 out of 10 on a pain scale. Quality of pain is described as sharp, Pain began 3 hours ago. Is episodic, Aggravated by Pt reports pain is aggravated with deep breaths. Cardiovascular: Patient's skin is warm and dry. Respiratory: Airway is patent Respiratory effort is even, unlabored, Respiratory pattern is regular, symmetrical. Derm: Skin is pink, warm \T\ dry. 23:35 Reassessment: Patient and/or family updated on plan of care and expected duration. Pain ea level reassessed. Patient is alert, oriented x 3, equal unlabored respirations, skin warm/dry/pink. 02/21 00:12 Reassessment: Patient and/or family updated on plan of care and expected duration. Pain ea level reassessed. Patient is alert, oriented x 3, equal unlabored respirations, skin warm/dry/pink. Awaiting on lab orders. 01:51 Reassessment: Patient and/or family updated on plan of care and expected duration. Pain ea level reassessed. Patient is alert, oriented x 3, equal unlabored respirations, skin warm/dry/pink. Awaiting on second trop. 02:21 Reassessment: Anju (daughter) [phone] for picker and sorter load and unload after discharge. ea 03:00 Reassessment: Patient and/or family updated on plan of care and expected duration. Pain ea level reassessed. Patient is alert, oriented x 3, equal unlabored respirations, skin warm/dry/pink. Patient states feeling better. Patient states symptoms have improved. 04:36 Reassessment: Patient and/or family updated on plan of care and expected duration. Pain ea level reassessed. Patient is alert, oriented x 3, equal unlabored respirations, skin warm/dry/pink. Awaiting on CT report. 05:20 Reassessment: Patient and/or family updated on plan of care and expected duration. Pain ea level reassessed. Patient is alert, oriented x 3, equal unlabored respirations, skin warm/dry/pink. Discharge instruction given to patient, verbalized the understanding of instruction. Pt awaiting on son for transport back home Patient states feeling better. Patient states symptoms have improved. 05:39 Reassessment: Patient and/or family updated on plan of care and expected duration. Pain ea level reassessed. Patient is alert, oriented x 3, equal unlabored respirations, skin warm/dry/pink. Discharge instruction given to patient, verbalized the understanding of instruction. Pt left ED via wheelchair, assisted to private vehicle per ED staff. Vital Signs: 02/20 21:43 Pulse 94; Resp 16; Temp 98.4(TE); Pulse Ox 97% ; Weight 50.8 kg; Height 5 ft. 6 in. ao (167.64 cm); Pain 9/10; 21:46 BP 176 / 113; ao 22:45 BP 176 / 96; Pulse 68; Resp 18; Pulse Ox 98% ; ea 02/21 00:00 BP 170 / 92; Pulse 71; Resp 19; Pulse Ox 98% on R/A; ea 01:56 BP 168 / 91; Pulse 69; Resp 19; Pulse Ox 98% ; ea 02:00 BP 159 / 96; Pulse 71; Resp 20; Pulse Ox 92% ; ea 03:00 BP 159 / 96; Pulse 87; Resp 18; Pulse Ox 98% on R/A; ea 04:53 BP 159 / 95; Pulse 77; Resp 16 S; Pulse Ox 97% ; ea 02/20 21:43 Body Mass Index 18.08 (50.80 kg, 167.64 cm) ao ED Course: 02/20 21:41 Patient arrived in ED. cf2 21:46 Triage completed. ao 21:53 Ana Maria Lyles, RN is Primary Nurse. ea 21:57 Jose Varela MD is Attending Physician. [facility] 22:05 Patient has correct armband on for positive identification. Placed in gown. Bed in low ea position. Call light in reach. Side rails up X2. radiation monitor on. Pulse ox on. NIBP on. 22:05 Arm band placed on right wrist. Patient placed in an exam room, on a stretcher, on ea pvc monitor, on pulse oximetry. 22:05 Inserted saline lock: 20 gauge in left forearm, using aseptic technique. Blood ea collected. Patient maintains SpO2 saturation greater than 95% on room air. 22:40 XRAY Chest (1 view) In Process Unspecified. EDMS 02/21 04:08 CT Abd/Pelvis - IV Contrast Only In Process Unspecified. EDMS 05:14 No provider procedures requiring assistance completed. IV discontinued, intact, ea bleeding controlled, No redness/swelling at site. Pressure dressing applied. Administered Medications: No medications were administered Outcome: 05:07 Discharge ordered by MD. hernandez 05:21 Condition: stable ea 05:21 Discharge instructions given to patient, Instructed on discharge instructions, follow up and referral plans. Demonstrated understanding of instructions, follow-up care. 05:38 Patient left the ED. ea 05:38 Discharged to home ambulatory. lawson Signatures: Dispatcher [employer] EDAmos Cruz RN RN Ana Maria Higgins RN Scott Charles ea cf2 Jose Varela MD MD mh7 Corrections: (The following items were deleted from the chart) 04:41 04:37 BP 159 / 96; Pulse 71bpm; Resp 20bpm; Pulse Ox 92%; lawson pathak
--- NOTE | 2020-02-22 05:08 | EDPHYS ---
Physician Documentation [facility] Name: Franci Olguin Age: 74 yrs Sex: Female : 1945 Arrival Date: 02/21/2020 Time: 21:41 Bed 6 Private MD: ED Physician Jose Varela HPI: 02/20 22:33 This 74 yrs old Female presents to ER via Wheelchair with complaints of Chest mh7 Pain. 22:33 The patient or guardian reports chest pain that is located primarily in the diaphragm. mh7 Onset: just prior to arrival. The pain does not radiate. Associated signs and symptoms: Pertinent negatives: abdominal pain, cough, diaphoresis, dizziness, headache, lower extremity pain, lower extremity swelling, lightheadedness, nausea, near syncope, palpitations, recent travel, shortness of breath, syncope, vomiting. The chest pain is described as sharp. Duration: The patient or guardian reports a single episode, that is still ongoing, and unchanged. Modifying factors: The symptoms are alleviated by nothing. the symptoms are aggravated by deep breath. Severity of pain: At its worst the pain was moderate just prior to arrival, in the emergency department the pain is unchanged despite home interventions. Patient reports right lower anterior chest pain that started tonight. She denies any injuries, fever, cough, nausea, vomiting, or SOB.. Historical: - Allergies: 21:47 Sulfa (Sulfonamide Antibiotics); ao - Home Meds: 21:47 ellindrate [Active]; letrozole 2.5 mg Oral tab 1 tab once daily [Active]; losartan Oral ao [Active]; Ventolin Rotahaler/Rotacaps Inhl [Active]; - PMHx: 21:47 COPD; Hypertension; Osteoporosis; ao - PSHx: 21:47 Mastectomy, Right; ao - Immunization history:: Adult Immunizations up to date. - Social history:: Smoking status: Patient reports the use of cigarette tobacco products, smokes one pack cigarettes per day. Patient/guardian denies using alcohol, street drugs. ROS: 22:33 Constitutional: Negative for fever, chills, and weight loss, Eyes: Negative for injury, mh7 pain, redness, and discharge, ENT: Negative for injury, pain, and discharge, Neck: Negative for injury, pain, and swelling, Abdomen/GI: Negative for abdominal pain, nausea, vomiting, diarrhea, and constipation, Back: Negative for injury and pain, : Negative for injury, bleeding, discharge, and swelling, MS/Extremity: Negative for injury and deformity, Skin: Negative for injury, rash, and discoloration, Neuro: Negative for headache, weakness, numbness, tingling, and seizure, Psych: Negative for depression, anxiety, suicide ideation, homicidal ideation, and hallucinations, Allergy/Immunology: Negative for hives, rash, and allergies, Endocrine: Negative for neck swelling, polydipsia, polyuria, polyphagia, and marked weight changes. Exam: 22:33 Constitutional: This is a well developed, well nourished patient who is awake, alert, mh7 and in no acute distress. Head/Face: Normocephalic, atraumatic. Eyes: Pupils equal round and reactive to light, extra-ocular motions intact. Lids and lashes normal. Conjunctiva and sclera are non-icteric and not injected. Cornea within normal limits. Periorbital areas with no swelling, redness, or edema. ENT: Nares patent. No nasal discharge, no septal abnormalities noted. Tympanic membranes are normal and external auditory canals are clear. Oropharynx with no redness, swelling, or masses, exudates, or evidence of obstruction, uvula midline. Mucous membranes moist. Neck: Trachea midline, no thyromegaly or masses palpated, and no cervical lymphadenopathy. Supple, full range of motion without nuchal rigidity, or vertebral point tenderness. No Meningismus. 22:33 Cardiovascular: Regular rate and rhythm with a normal S1 and S2. No gallops, murmurs, or rubs. Normal PMI, no JVD. No pulse deficits. Respiratory: Lungs have equal breath sounds bilaterally, clear to auscultation and percussion. No rales, rhonchi or wheezes noted. No increased work of breathing, no retractions or nasal flaring. Abdomen/GI: Soft, non-tender, with normal bowel sounds. No distension or tympany. No guarding or rebound. No evidence of tenderness throughout. Back: No spinal tenderness. No costovertebral tenderness. Full range of motion. Skin: Warm, dry with normal turgor. Normal color with no rashes, no lesions, and no evidence of cellulitis. MS/ Extremity: Pulses equal, no cyanosis. Neurovascular intact. Full, normal range of motion. Neuro: Awake and alert, GCS 15, oriented to person, place, time, and situation. Cranial nerves II-XII grossly intact. Motor strength 5/5 in all extremities. Sensory grossly intact. Cerebellar exam normal. Normal gait. Psych: Awake, alert, with orientation to person, place and time. Behavior, mood, and affect are within normal limits. 22:33 Chest/axilla: Inspection: normal, Palpation: tenderness, that is mild, of the right lower chest, Axilla: are normal, Lymph nodes: lymphadenopathy is not appreciated. 22:33 ECG was reviewed by the Attending Physician. [facility] 02/21 07:03 Chest/axilla: Palpation: tenderness, that is mild, that totally reproduces the [facility] patient's complaints. Vital Signs: 02/20 21:43 Pulse 94; Resp 16; Temp 98.4(TE); Pulse Ox 97% ; Weight 50.8 kg; Height 5 ft. 6 in. ao (167.64 cm); Pain 9/10; 21:46 BP 176 / 113; ao 22:45 BP 176 / 96; Pulse 68; Resp 18; Pulse Ox 98% ; ea 02/21 00:00 BP 170 / 92; Pulse 71; Resp 19; Pulse Ox 98% on R/A; ea 01:56 BP 168 / 91; Pulse 69; Resp 19; Pulse Ox 98% ; ea 02:00 BP 159 / 96; Pulse 71; Resp 20; Pulse Ox 92% ; ea 03:00 BP 159 / 96; Pulse 87; Resp 18; Pulse Ox 98% on R/A; ea 04:53 BP 159 / 95; Pulse 77; Resp 16 S; Pulse Ox 97% ; ea 02/20 21:43 Body Mass Index 18.08 (50.80 kg, 167.64 cm) ao MDM: 02/20 21:57 Patient medically screened. [facility] 02/21 05:03 Differential diagnosis: acute myocardial infarction, coronary artery disease chest wall [facility] pain, cholecystitis, Cholelithiasis costochondritis, gastritis, abdominal pain. Data reviewed: vital signs, nurses notes, lab test result(s), EKG, radiologic studies, CT scan, plain films. 07:03 Counseling: I had a detailed discussion with the patient and/or guardian regarding: the [facility] historical points, exam findings, and any diagnostic results supporting the discharge/admit diagnosis, the presence of at least one elevated blood pressure reading (>120/80) during this emergency department visit, lab results, radiology results. ED course: Feels better, NAD, VSS, no focal neurological deficits. Discussed all test results and findings with the patient and answered all of her questions. She requests to be discharged from the ED at this time. She will follow up with her PCP this week. Explained that she needs to return to the ED if worsening of symptoms or other concerns.. 02/20 22:12 Order name: Basic Metabolic Panel 02/20 22:12 Order name: CBC with Diff 02/20 22:12 Order name: LFT's 02/20 22:12 Order name: Magnesium; Complete Time: 23: 02/20 22:12 Order name: NT PRO-BNP; Complete Time: 23: 02/20 22:12 Order name: PT-INR; Complete Time: 23: 02/20 22:12 Order name: Troponin (emerg Dept Use Only); Complete Time: 23: 02/20 22:12 Order name: Lipase; Complete Time: 23: 02/20 22:13 Order name: Basic Metabolic Panel; Complete Time: 23:22 [facility] 02/20 22:13 Order name: CBC with Automated Diff; Complete Time: 23:22 [facility] 02/20 22:13 Order name: Liver (Hepatic) Function; Complete Time: 23:22 [facility] 02/20 22:20 Order name: UA; Complete Time: 01:51 [facility] 02/21 00:11 Order name: Urine Microscopic Only; Complete Time: 01:51 [facility] 02/21 00:40 Order name: Urine Culture [facility] 02/20 22:12 Order name: XRAY Chest (1 view) 02/20 22:12 Order name: EKG; Complete Time: :13 02/20 22:12 Order name: Cardiac monitoring; Complete Time: 22:12 02/20 22:12 Order name: EKG - Nurse/Tech; Complete Time: 22:12 02/20 22:12 Order name: IV Saline Lock; Complete Time: : 02/20 22:12 Order name: Labs collected and sent; Complete Time: : 02/20 22:12 Order name: O2 Per Protocol; Complete Time: 22:12 02/20 22:12 Order name: O2 Sat Monitoring; Complete Time: 22:12 02/21 01:04 Order name: Troponin (emerg Dept Use Only): 3 hours after inital trop; Complete Time: lp1 03:05 02/21 03:21 Order name: CT Abd/Pelvis - IV Contrast Only 7 EC/13 22:33 Rate is 107 beats/min. Rhythm is regular. QRS [place] is Normal. [place] interval is normal. 7 QRS interval is normal. QT interval is normal. No Q waves. T waves are Normal. No ST changes noted. Clinical impression: LVH and Sinus tachycardia. Administered Medications: No medications were administered Disposition: 02/21 07:09 Co-signature as Attending Physician, Jose Varela MD. 7 Disposition: 02/22/20 05:07 Discharged to Home. Impression: Upper abdominal pain, unspecified, Chest pain, unspecified - Chest Wall Pain. - Condition is Stable. - Discharge Instructions: Abdominal Pain, Adult, Chest Wall Pain. - Medication Reconciliation Form, Thank You Letter, Antibiotic Education, Prescription Opioid Use form. - Follow up: Private Physician; When: 1 - 2 days; Reason: Worsening of condition, Re-evaluation by your physician. - Problem is an acute exacerbation. - Symptoms have improved. Signatures: Dispatcher [employer] EDAmos Cruz, RN RN Ana Maria Higgins RN RN ea Holmes, Maurice, MD MD mh7 Corrections: (The following items were deleted from the chart) 05:38 05:07 02/22/2020 05:07 Discharged to Home. Impression: Upper abdominal pain, ea unspecified; Chest pain, unspecified - Chest Wall Pain. Condition is Stable. Forms are Medication Reconciliation Form, Thank You Letter, Antibiotic Education, Prescription Opioid Use. Follow up: Private Physician; When: 1 - 2 days; Reason: Worsening of condition, Re-evaluation by your physician. Problem is an acute exacerbation. Symptoms have improved. [facility]
[2020-02-22 05:44] VITALS: TEMP 98.4
[2020-02-22 05:53] VITALS: BP 159/95; O2SAT 97
--- NOTE | 2020-02-22 11:15 | EKG ---
Test Date: 2020-02-21 Test Time: 22:01:01 Highway Patrol Officer: NIKKI MEASUREMENT RESULTS: Intervals: Rate: 107 PA: 138 QRSD: 78 QT: 356 QTc: 475 [place]: P: 84 PA: 138 QRS: 41 T: 75 INTERPRETIVE STATEMENTS: Sinus rhythm with frequent and consecutive premature ventricular complexes Minimal voltage criteria for LVH, may be normal variant Abnormal ECG Compared to ECG 10/15/2018 19:29:55 Ventricular premature complex(es) now present Electronically Signed On 02-22-20 11:13:33 CDT by Jacky Paniagua
--- NOTE | 2020-02-22 11:48 | RAD REPORT ---
EXAM DESCRIPTION: CT abdomen and pelvis with IV contrast CLINICAL HISTORY: 74-year-old female with right-sided chest pain with shortness of breath, abdominal pain TECHNIQUE: Axial CT imaging of the abdomen and pelvis was performed following the administration of intravenous contrast.. Sagittal and coronal reconstructed images were then performed. The CT stud y is performed according to ALARA (as low as reasonably achievable) or ALARA/IMAGE GENTLY, with autom atic adjustment of mA and/or kV according to patient size. Performed on: 02/22/2020 at 3:59 AM. COMPARISON: No prior studies were available for comparison. FINDINGS: Lung bases: There is extensive centrilobular emphysema in the visualized lung bases there are no pleural effusions. The heart is normal in size. Liver: The liver is normal in size and configuration. No focal hepatic abnormalities are identified. There is decreased attenuation of the liver commonly due to fatty infiltration. Spleen: The spleen is normal is size, configuration and attenuation. Gallbladder and bile duct: The gallbladder is well distended and unremarkable. There is no biliary ductal dilatation. Pancreas: The pancreas is grossly normal in size and configuration. Adrenal Glands: The adrenal glands are normal in size and configuration. Kidneys: The kidneys are normal in size and configuration. There is no evidence of hydronephrosis. Th ere is no evidence of nephrolithiasis. There is a 4 cm sharply marginated benign appearing cyst arisi ng from the upper pole of the left kidney and an approximately 1.1 cm cyst arising from the lower mariia e of the right kidney. Stomach: The stomach is grossly normal. There is no definite hiatal hernia. Bowel: The bowel gas pattern is non specific and non obstructive. There is moderate fecal residue sca ttered throughout the colon. Appendix: There is no CT evidence to suggest acute appendicitis. Free air: There is no evidence of free air. Free fluid: There is no evidence of free fluid. Vasculature: The aorta is normal in caliber and contour. The inferior vena cava is grossly unremarkab le. There are mild to moderate atherosclerotic calcifications along the abdominal aorta and iliac art eries. Lymphadenopathy: No pathologic lymphadenopathy is identified. Bladder: The bladder is well distended and smooth in contour. Reproductive: The uterus is grossly within normal limits. Bones: No acute osseous abnormalities are identified. There are mild degenerative changes of the skel etal structures. Soft tissues: No focal soft tissue abnormalities are identified. IMPRESSION: 1. No evidence of acute intra-abdominal or intrapelvic pathology. 2. Extensive centrilobular emphysema. 3. Fatty infiltration of the liver. 4. Moderate fecal residue scattered throughout the colon. 5. Bilateral renal cysts. 6. Degenerative changes of the skeletal and vascular structures. Electronically signed by: Esme Joy DO 02/22/2020 4:30 AM CDT Due to temporary technical issues with the PACS/Fluency reporting system, reports are being signed by the in house radiologist as a courtesy to ensure prompt reporting. The interpreting radiologist is f ully responsible for the content of the report.
--- NOTE | 2020-02-22 11:50 | RAD REPORT ---
EXAM DESCRIPTION: Chest Single View CLINICAL HISTORY: CHEST PAIN COMPARISON: None. TECHNIQUE: XR CHEST 1 VIEW 02/21/2020 10:12 PM CDT FINDINGS: Cardiac silhouette is normal in size. There is minimal scarring in the lower third of the right lung. There is right apical scarring. There is no pleural effusion. There is no pneumothorax. There are no acute osseous findings. IMPRESSION: There are surgical clips throughout the right chest wall. No definite pneumonia. Electronically signed by: Jhonatan Adrian MD 02/22/2020 12:02 AM CDT Due to temporary technical issues with the PACS/Fluency reporting system, reports are being signed by the in house radiologist as a courtesy to ensure prompt reporting. The interpreting radiologist is f ully responsible for the content of the report.
== END 2020-02-22 05:38 | disposition home or self-care (01) ==
LOC: ER 21:39
DX: R07.9 Chest pain, unspecified (principal); R07.89 Other chest pain; I10 Essential (primary) hypertension; J44.9 Chronic obstructive pulmonary disease, unspecified; F17.210 Nicotine dependence, cigarettes, uncomplicated; Z88.2 Allergy status to sulfonamides
CPT/HCPCS: 93005; 87088; 85025; 87086; 80048; 36415; 83735; 85610; 80076; 84484 ×2; 83690; 83880; 74177; 71045; 99285; Q9967; 81003; 81015

== ENCOUNTER 2021-02-27 00:27 | Inpatient (IN) | payer OTHER, BC ==
--- OUTSIDE RECORDS SUMMARY | 2021-02-27 00:30 | XMS REPORT | Continuity of Care Document ---
:1945 Author Organization [facility] t Address [address] [place] [address] Care Team Providers Name Role Phone Sebastien Riveraalfonso Primary Care Physician HARSH CARTER Attending Clinician Unavailable HARSH CARTER Admitting Clinician Unavailable Problems Condition Condition Condition Status Onset Resolution Last Treating Co mments Source Name Details Category Date Date Treatment Clinician Date Breast Breast Disease Active 2016-10 EMILY Neri mass, mass, 0-17 [facility] right 00:[facility]: Medical 00 [place] Breast Breast Disease Active 2016-[address] [facility] cancer cancer 0-17 [facility] Allergies, Adverse Reactions, Alerts Allergy Allergy Status Severity Reaction(s) Onset Inactive Treating Comm ents Source Name Type Date Date Clinician Sulfa Drug Active Other (See 2016-[address] [facility] (Sulfona Allergy Comments) 0-16 in [facility] - mide 00:00: childhood Medical Antibiot 00 , was not Cente r ics) told what reaction Social History Social Habit Start Date Stop Date Quantity Comments Source Sex Assigned At [facility] Cigarettes smoked 2017-07-27 2017-07-[address] [facility] - current (pack per 00:00:00 00:00:00 Medical Center day) - Reported Tobacco use and 2017-07-27 2017-07-[address] [facility] - exposure 00:00:00 00:00:00 [facility] Alcohol intake 2017-07-27 2017-07-[address] [facility] - 00:00:00 00:00:00 non-drinker of Medical Ce nter alcohol (finding) Tobacco Comment 2017-07-26 2017-07-26 [facility] - 00:[facility] 00:00:00 [facility]IV[facility] Smoking Status Start Date Stop Date Source Current every day smoker 2017-07-27 00:00:[address] [facility] Medications Ordered Filled Start Stop Current Ordering Indication Dosage Frequency Signature Comments Components Source Medication Medication Date Date Medication? Clinician (SIG) Name Name albuterol 2016-10 Yes 1{puff} Inhale [address] HFA 0-18 puff by [facility] - (VENTOLIN 11:44: mouth via Med ical HFA) 90 34 inhaler Center mcg/actuati every 6 on inhaler (six) hours as needed for Wheezing. losartan 2016-10 Yes 50mg QD Take [address] [facility] (COZAAR) 50 0-18 by mouth [facility] - MG tablet 11:44: daily. Medica l 34 Center alendronate 2016-10 Yes 70mg Take [address] [facility] (FOSAMAX) 0-18 by mouth [facility] - 70 MG 11:44: every 7 Medical tablet 34 days Take Center in the morning with a full glass of water, on an empty stomach, and do not take anything else by mouth or lie down for the next 30 min. . Procedures This patient has no known procedures. Results Test Description Test Time Test Comments Results Result [facility] e Comments TISSUE EXAM 2017-09-06 Surgical Pathology 08:59:00 Report Case: [id number] Authorizing Provider: Karma Carter MD Collected: 07/27/2017 1043 Ordering Location: [facility] Received: 07/27/2017 1103 SERVICES Pathologist: Waylon Regalado MD Specimens: A) - Breast, Right, right breast long stitch lateral, short stitch superior B) - Lymph Node, [place], Right Axilla, sentinel lymph node # 1; ex vivo 17 REASON FOR ADDENDUM: TO REPORT ONCOTYPE DX RESULT.PERFORMED ON [id number] DX RECURRENCE SCORE RESULT : 1210-YEAR RISK [...] CARCINOMA (0/1) Signing Pathologist Direct Phone Line: [phone] ly signed by Waylon Regalado MD on [...] (including nipple and skin) Lymph Node Sampling: [place] lymph node(s) Specimen Laterality: RightTUMOR Specify Clock Position of Tumor Site: 12 o'clock Presence of Invasive Carcinoma: Histologic Type: Invasive mammary carcinoma of no special type (ductal, not otherwise specified) Histologic Grade (Leigh Histologic Score): Glandular (Acinar) / Tubular Differentiation: [...] margin): superficial superiorLYMPH NODES Regional Lymph Nodes: [place] Node Status: [place] lymph node biopsy performed Number of [place] Nodes Examined: Specify number: 1 Method of Evaluation of [place] Lymph Node(s): H&E, multiple levels Number of [...] No regional lymph node metastasis identified histologicallyA. 06226 x 1; 45314 x 1B. 83671 x 1Malignant neoplasm of right breastA. Right [...] code: Superficial superior-blue, superficial inferior-red, deep-black.Section code: Mobile Equipment Mechanic sections are submitted as follows. A1, nipple [...] Malena REGALADO TO ON 07/27/17 AT 11:05 A.M.A-B: Performed.[facility], Department of Pathology, [address] [place] [address], SENTINEL NODE 2017-07-27 Reason for FINAL REPORT PATIENT ID: INJECTION, 09:54:00 exam:->right [id number] PROCEDURE: NON-IMAGING breast SENTINEL NODE LOCALIZATION - NON IMAGING INDICATION: Right breast cancer PROTOCOL: A total of 1.2 mCi of Tc-99m tilmanocept was injected in the right breast by the radiographer technologist. One aliquot was injected subcutaneously in the subareolar area. IMPRESSION: Radiopharmaceutical injection for intraoperative sentinel node localization. Signed: Mark Daugherty [facility] Verified Date/Time: 07/27/2017 09:54:19 Reading Location: [address] Reading Room
[2021-02-27 00:52] LABS: Arterial Blood Carboxyhemoglob 1.5 % (0-1.5); Blood Gas Oxyhemoglobin 88.8 % (94-97); Blood O2 Saturation 90.8 % (92-98.5)
[2021-02-27] MEDS ORDERED: dexAMETHasone 10 MG/ML VIAL ONE (01:01)
[2021-02-27] MEDS ORDERED: NITROGLYCERIN 1 GM PKT TD ONE (01:01)
[2021-02-27] MEDS ORDERED: FAMOTIDINE 20 MG/2 ML VIAL IV ONE ×2 (01:02→10:03)
[2021-02-27] MEDS ORDERED: LEVALBUTEROL 1.25 MG/3 ML NEB ONE (01:02)
[2021-02-27] MEDS ORDERED: PIPER/TAZO/NS 3.375gm 3.375 GM/100 ML BAG ONE ×2 (01:02→10:03)
[2021-02-27] MEDS ORDERED: IPRATROPIUM BROM 0.5MG/2.5ML ONE ×2 (01:02→08:55)
[2021-02-27 01:10] LABS: Absolute Lymphocytes (CBC) 2.9 K/uL (0.7-4.9); Basophils % 0.9 % (0-1.3); Hematocrit 42.5 % (36.0-45.0); Lymphocytes % 25.1 % (15.3-44.8); MPV 7.9 fL (7.6-11.3); RBC Red Blood Cell Count 4.87 M/uL (3.86-4.86)
[2021-02-27 01:15] LABS: Protime INR 1.21
[2021-02-27 01:28] LABS: ALT/SGPT 28 U/L (12-78); AST/SGOT 41 U/L (15-37); Alkaline Phosphatase 241 U/L (45-117); BUN Blood Urea Nitrogen 16 mg/dL (7-18); Bicarbonate 29 mmol/L (21-32); Bilirubin Direct 0.2 mg/dL (0-0.2); Bilirubin Total 0.6 mg/dL (0.2-1.0); Glucose Level 110 mg/dL (74-106); Magnesium 2.1 mg/dL (1.8-2.4); NT PRO-BNP 730 pg/mL (<450); Potassium 4.1 mmol/L (3.5-5.1); Protein, Total 8.1 g/dL (6.4-8.2); Sodium Level 138 mmol/L (136-145); Troponin (Emerg Dept Use Only) 0.02 ng/mL (0.0-0.045)
--- NOTE | 2021-02-27 03:25 | ER ---
Nurse's Notes [facility] Name: Franci Olguin Age: 75 yrs Sex: Female : 1945 Arrival Date: 02/27/2021 Time: 00:30 Bed 4 Private MD: Diagnosis: Dyspnea;Chronic obstructive pulmonary disease with (acute) exacerbation;Pleural condition, unspecified-pleural /septal mass, right;Hypoxemia Presentation: 02/27 00:31 Chief complaint: EMS states: Toned out for COPD exacerbation, pt O2 sats were 82% on ea RA, lung sounds decreased, BGL 126, BP: 208/117. Coronavirus screen: At this time, the client does not indicate any symptoms associated with coronavirus-19. Ebola Screen: No symptoms or risks identified at this time. Initial Sepsis Screen: Does the patient meet any 2 criteria? No. Patient's initial sepsis screen is negative. Does the patient have a suspected source of infection? No. Patient's initial sepsis screen is negative. Risk Assessment: Do you want to hurt yourself or someone else? Patient reports no desire to harm self or others. Onset of symptoms was February 27, 2021. 00:31 Method Of Arrival: EMS: [facility] ea 00:31 Acuity: REI 3 ea Historical: - Allergies: 00:36 Sulfa (Sulfonamide Antibiotics); ea - Home Meds: 00:36 ellindrate [Active]; letrozole 2.5 mg Oral tab 1 tab once daily [Active]; losartan Oral ea [Active]; Ventolin Rotahaler/Rotacaps Inhl [Active]; - PMHx: 00:36 Osteoporosis; Hypertension; COPD; ea - PSHx: 00:36 Mastectomy, Right; ea - Immunization history:: Adult Immunizations up to date. - Social history:: Smoking status: unknown. Screenin:34 Abuse screen: Denies threats or abuse. Nutritional screening: No deficits noted. ea Tuberculosis screening: No symptoms or risk factors identified. Fall Risk None identified. Assessment: 00:36 General: Appears uncomfortable, Behavior is appropriate for age. Pain: Denies pain. ea Neuro: Level of Consciousness is awake, alert, obeys commands, Oriented to person, place, time. Respiratory: Airway is patent Respiratory effort is even, labored, Respiratory pattern is tachypnea. GI: Abdomen is non-distended. Derm: Skin is pink, warm \T\ dry. 02:40 Reassessment: Patient and/or family updated on plan of care and expected duration. Pain ea level reassessed. Patient is alert, oriented x 3, equal unlabored respirations, skin warm/dry/pink. 03:00 Reassessment: Patient and/or family updated on plan of care and expected duration. Pain ea level reassessed. Patient is alert, oriented x 3, equal unlabored respirations, skin warm/dry/pink. Family remains at bedside. Vital Signs: 00:31 BP 181 / 114; Pulse 108; Resp 26; Temp 98.1; Pulse Ox 100% on Nebulizer Mask; Weight ea 45.36 kg; Height 5 ft. 6 in. (167.64 cm); 01:01 BP 185 / 110; Pulse 97; Resp 20; Pulse Ox 100% on Nebulizer Mask; ea 02:40 BP 135 / 89; Pulse 98; Resp 18; Temp 97.8; Pulse Ox 98% ; ea 03:05 BP 155 / 75; Pulse 97; Resp 18; Pulse Ox 98% on R/A; ea 04:30 BP 118 / 92; Pulse 89; Resp 19; Pulse Ox 95% ; ea 05:30 BP 144 / 80; Pulse 82; Resp 18; Pulse Ox 98% ; ea 00:31 Body Mass Index 16.14 (45.36 kg, 167.64 cm) ED Course: 00:30 Patient arrived in ED. jonny 00:30 Ronn Zhong MD is Attending Physician. jonny 00:31 Ana Maria Lyles RN is Primary Nurse. ea 00:34 Triage completed. ea 00:35 Arm band placed on right wrist. Patient placed in an exam room, on a stretcher, on ea oxygen, on pulse oximetry. 00:35 Patient has correct armband on for positive identification. Placed in gown. Bed in low ea position. Call light in reach. Side rails up X2. monitor worker on. Pulse ox on. NIBP on. 00:44 Inserted saline lock: 20 gauge in left forearm, using aseptic technique. Blood rr5 collected. 00:44 Maintain EMS IV. Dressing intact. Good blood return noted. Site clean \T\ dry. Gauge \T\ rr 5 site: G 20 left AC. 00:51 EKG done, by ED staff, reviewed by Ronn Zhong MD. rr5 01:01 No provider procedures requiring assistance completed. ea 02:15 XRAY Chest (1 view) In Process Unspecified. EDMS 02:19 CT Chest For PE Angio In Process Unspecified. EDMS 03:20 Rob Rivera MD is Hospitalizing Provider. jonny 06:24 Patient admitted, IV remains in place. ea Administered Medications: 00:59 Drug: Decadron - Dexamethasone 6 mg Route: IVP; Site: left forearm; ea 01:57 Follow up: Response: No adverse reaction ea 00:59 Drug: Pepcid (famotidine) 20 mg Route: IVP; Site: left forearm; ea 01:12 Follow up: Response: No adverse reaction ea 01:58 Follow up: Response: No adverse reaction ea 01:00 Drug: Zosyn (piperacillin-tazobactam) 3.375 grams Route: IVPB; Infused Over: 60 mins; ea Site: left forearm; 01:58 Follow up: IV Status: Completed infusion ea 01:00 Drug: Xopenex (levalbuterol) 2.5 mg Route: Inhalation; ea 01:58 Follow up: Response: No adverse reaction ea 01:00 Drug: AtroVENT (ipratropium) Aerosol 0.5 mg Route: Inhalation; ea 05:01 Not Given (Patient Refused): Nitro-Bid (nitroglycerin) Ointment 2 % 1 inches ea Transdermal once Outcome: 03:24 Decision to Hospitalize by Provider. jonny 06:25 Admitted to ER Hold. Please see [facility] for further documentation. ea 06:25 Condition: stable 06:25 Instructed on the need for admit, Demonstrated understanding of instructions. 13:39 Patient left the ED. jd3 Signatures: Dispatcher [employer] Ronn Bello MD MD cha Antunez, Elena, RN RN ea Davies, Jonathon, RN RN jd3 Roque, Raymond, RN RN rr5 Corrections: (The following items were deleted from the chart) 03:02 03:00 Reassessment: Patient and/or family updated on plan of care and expected ea duration. Pain level reassessed. Patient is alert, oriented x 3, equal unlabored respirations, skin warm/dry/pink. ea
--- NOTE | 2021-02-27 03:25 | EDPHYS ---
Physician Documentation [facility] Name: Franci Olguin Age: 75 yrs Sex: Female : 1945 Arrival Date: 02/27/2021 Time: 00:30 Bed 4 Private MD: ED Physician Ronn Zhong HPI: 02/27 00:36 This 75 yrs old Female presents to ER via EMS with complaints of copd jonny exacerbation. 00:36 The patient has shortness of breath at rest, with light activity. Onset: The jonny symptoms/episode began/occurred 2 day(s) ago. Duration: The symptoms are continuous, and are steadily getting worse. The patient's shortness of breath is aggravated by coughing, exertion, light activity, supine position, is alleviated by elevating head, nebulizer treatment, application of supplemental oxygen. The patient or guardian reports cough, that is intermittent, difficulty breathing, flu symptoms, arthralgias. Modifying factors: The symptoms are alleviated by elevating head, remaining still, rest, the symptoms are aggravated by activity, lying flat, talking. Associated signs and symptoms: Pertinent positives: non-productive cough. Severity of symptoms: At their worst the symptoms were mild moderate in the emergency department the symptoms are unchanged. Historical: - Allergies: 00:36 Sulfa (Sulfonamide Antibiotics); ea - Home Meds: 00:36 ellindrate [Active]; letrozole 2.5 mg Oral tab 1 tab once daily [Active]; losartan Oral ea [Active]; Ventolin Rotahaler/Rotacaps Inhl [Active]; - PMHx: 00:36 Osteoporosis; Hypertension; COPD; ea - PSHx: 00:36 Mastectomy, Right; ea - Immunization history:: Adult Immunizations up to date. - Social history:: Smoking status: unknown. ROS: 00:38 Constitutional: Negative for fever, chills, and weight loss, Eyes: Negative for injury, jonny pain, redness, and discharge, ENT: Negative for injury, pain, and discharge, Neck: Negative for injury, pain, and swelling, Cardiovascular: Negative for chest pain, palpitations, and edema, Abdomen/GI: Negative for abdominal pain, nausea, vomiting, diarrhea, and constipation, Back: Negative for injury and pain, : Negative for injury, bleeding, discharge, and swelling, MS/Extremity: Negative for injury and deformity, Skin: Negative for injury, rash, and discoloration, Neuro: Negative for headache, weakness, numbness, tingling, and seizure, Psych: Negative for depression, anxiety, suicide ideation, homicidal ideation, and hallucinations, Allergy/Immunology: Negative for hives, rash, and allergies, Endocrine: Negative for neck swelling, polydipsia, polyuria, polyphagia, and marked weight changes, Hematologic/Lymphatic: Negative for swollen nodes, abnormal bleeding, and unusual bruising. 00:38 Respiratory: Positive for cough, shortness of breath, wheezing, inspiratory, expiratory. Exam: 00:38 Constitutional: This is a well developed, well nourished patient who is awake, alert, jonny and in no acute distress. Head/Face: Normocephalic, atraumatic. Eyes: Pupils equal round and reactive to light, extra-ocular motions intact. Lids and lashes normal. Conjunctiva and sclera are non-icteric and not injected. Cornea within normal limits. Periorbital areas with no swelling, redness, or edema. ENT: Nares patent. No nasal discharge, no septal abnormalities noted. Tympanic membranes are normal and external auditory canals are clear. Oropharynx with no redness, swelling, or masses, exudates, or evidence of obstruction, uvula midline. Mucous membranes moist. Neck: Trachea midline, no thyromegaly or masses palpated, and no cervical lymphadenopathy. Supple, full range of motion without nuchal rigidity, or vertebral point tenderness. No Meningismus. Chest/axilla: Normal chest wall appearance and motion. Nontender with no deformity. No lesions are appreciated. Abdomen/GI: Soft, non-tender, with normal bowel sounds. No distension or tympany. No guarding or rebound. No evidence of tenderness throughout. Back: No spinal tenderness. No costovertebral tenderness. Full range of motion. Female : Normal external genitalia. Skin: Warm, dry with normal turgor. Normal color with no rashes, no lesions, and no evidence of cellulitis. MS/ Extremity: Pulses equal, no cyanosis. Neurovascular intact. Full, normal range of motion. Neuro: Awake and alert, GCS 15, oriented to person, place, time, and situation. Cranial nerves II-XII grossly intact. Motor strength 5/5 in all extremities. Sensory grossly intact. Cerebellar exam normal. Normal gait. Psych: Awake, alert, with orientation to person, place and time. Behavior, mood, and affect are within normal limits. 00:38 Cardiovascular: Rate: tachycardic, Rhythm: regular, Pulses: Pulses are 4+ in bilateral radial, brachial, femoral, popliteal, posterior tibial and and dorsalis pedis arteries.. Heart sounds: normal, murmur, not appreciated, Edema: is not appreciated, JVD: is not appreciated. 00:41 ECG was reviewed by the Attending Physician. [facility] Vital Signs: 00:31 BP 181 / 114; Pulse 108; Resp 26; Temp 98.1; Pulse Ox 100% on Nebulizer Mask; Weight ea 45.36 kg; Height 5 ft. 6 in. (167.64 cm); 01:01 BP 185 / 110; Pulse 97; Resp 20; Pulse Ox 100% on Nebulizer Mask; ea 02:40 BP 135 / 89; Pulse 98; Resp 18; Temp 97.8; Pulse Ox 98% ; ea 03:05 BP 155 / 75; Pulse 97; Resp 18; Pulse Ox 98% on R/A; ea 04:30 BP 118 / 92; Pulse 89; Resp 19; Pulse Ox 95% ; ea 05:30 BP 144 / 80; Pulse 82; Resp 18; Pulse Ox 98% ; ea 00:31 Body Mass Index 16.14 (45.36 kg, 167.64 cm) ea MDM: 00:30 Patient medically screened. [facility] 00:39 Differential diagnosis: Anemia Anxiety Reaction asthma, Bronchitis CHF exacerbation, jonny Chronic Obstructive Pulmonary Disease bronchitis, flu, URI, Myocardial Infarction pneumonia, pulmonary edema, Pulmonary Embolism reactive airway disease, Sepsis Unstable Angina. Antibiotic administration: zosyn . The patient's [place] Deep Vein Thrombosis Score was calculated as follows: Heart Rate >100 BPM (1.5 Pts) Total Score: 0-2 Pts- Low Risk. Differential Diagnosis: Bronchitis Influenza Upper Respiratory Infection Sinusitis Pharyngitis Allergic Rhinitis Viral Syndrome Pneumonia Tracheal Injury. The patient's pulmonary embolism risk score was calculated as follows: the patients heart rate is greater than 100 beats per minute (1.5 Pts). Immunization status: Pneumococcal vaccine: Influenza vaccine: Data reviewed: vital signs, nurses notes, lab test result(s), EKG, radiologic studies, plain films. Data interpreted: vehicle monitor technician: rate is 108 beats/min, rhythm is regular, Pulse oximetry: on room air is 100 %. Test interpretation: by ED physician or midlevel provider: ECG, plain radiologic studies. Counseling: I had a detailed discussion with the patient and/or guardian regarding: the historical points, exam findings, and any diagnostic results supporting the discharge/admit diagnosis, lab results, radiology results, the need for further work-up and treatment in the hospital. 02/27 00:36 Order name: Basic Metabolic Panel [facility] 02/27 00:36 Order name: CBC with Diff [facility] 02/27 00:36 Order name: LFT's [facility] 02/27 00:36 Order name: Magnesium [facility] 02/27 00:36 Order name: NT PRO-BNP [facility] 02/27 00:36 Order name: PT-INR [facility] 02/27 00:36 Order name: Troponin (emerg Dept Use Only) [facility] 02/27 00:36 Order name: Blood Culture Adult (2) [facility] 02/27 00:36 Order name: ABG [facility] 02/27 00:56 Order name: ABG Arterial Blood Gas; Complete Time: 01:05 [facility] 02/27 01:14 Order name: CBC with Automated Diff; Complete Time: 01:26 [facility] 02/27 01:20 Order name: Protime (+INR); Complete Time: 01:26 [facility] 02/27 00:36 Order name: XRAY Chest (1 view) [facility] 02/27 01:28 Order name: Basic Metabolic Panel; Complete Time: 01:31 [facility] 02/27 01:28 Order name: Liver (Hepatic) Function; Complete Time: 01: [facility] 02/27 01:28 Order name: Troponin (Emerg Dept Use Only); Complete Time: 01: [facility] 02/27 01:28 Order name: NT PRO-BNP; Complete Time: 01:31 [facility] 02/27 01:28 Order name: Magnesium; Complete Time: 01:31 [facility] 02/27 01:34 Order name: CT Chest For PE Angio [facility] 02/27 03:57 Order name: COVID-19/FLU A+B [facility] 02/27 11:31 Order name: Troponin I [facility] 02/27 00:36 Order name: EKG; Complete Time: 00:[address] [facility] 02/27 00:36 Order name: Cardiac monitoring; Complete Time: 00:[address] [facility] 02/27 00:36 Order name: EKG - Nurse/Tech; Complete Time: 00:[address] [facility] 02/27 00:36 Order name: IV Saline Lock; Complete Time: 00:[address] [facility] 02/27 00:36 Order name: Labs collected and sent; Complete Time: 00:[address] [facility] 02/27 00:36 Order name: O2 Per Protocol; Complete Time: 00:[address] [facility] 02/27 00:36 Order name: O2 Sat Monitoring; Complete Time: 00:[address] [facility] 02/27 03:29 Order name: CONS Physician Consult EDNY 02/27 08:33 Order name: Diet Heart Healthy; Complete Time: 08: jd3 EC:41 Rate is 99 beats/min. Rhythm is regular. QRS [place] is Normal. [place] interval is normal. QRS jonny interval is normal. QT interval is normal. No Q waves. T waves are Normal. No ST changes noted. Clinical impression: NSR w/ Non-specific ST/T Changes and No evidence of ischemia. Interpreted by me. Reviewed by me. Administered Medications: 00:59 Drug: Decadron - Dexamethasone 6 mg Route: IVP; Site: left forearm; ea 01:57 Follow up: Response: No adverse reaction ea 00:59 Drug: Pepcid (famotidine) 20 mg Route: IVP; Site: left forearm; ea 01:12 Follow up: Response: No adverse reaction ea 01:58 Follow up: Response: No adverse reaction ea 01:00 Drug: Zosyn (piperacillin-tazobactam) 3.375 grams Route: IVPB; Infused Over: 60 mins; ea Site: left forearm; 01:58 Follow up: IV Status: Completed infusion ea 01:00 Drug: Xopenex (levalbuterol) 2.5 mg Route: Inhalation; ea 01:58 Follow up: Response: No adverse reaction ea 01:00 Drug: AtroVENT (ipratropium) Aerosol 0.5 mg Route: Inhalation; ea 05:01 Not Given (Patient Refused): Nitro-Bid (nitroglycerin) Ointment 2 % 1 inches ea Transdermal once Disposition: 02/27/21 03:24 Hospitalization ordered by Rob Rivera for Inpatient Admission. Preliminary diagnosis are Dyspnea, Chronic obstructive pulmonary disease with (acute) exacerbation, Pleural condition, unspecified - pleural /septal mass, right, Hypoxemia. - Bed requested for Telemetry/MedSurg (Inpatient). - Status is Inpatient Admission. jd3 - Condition is Fair. - Problem is new. - Symptoms have improved. Signatures: Dispatcher [employer] [facility] Lizzy Hopkins, RN Ronn Jorge MD MD cha Antunez, Elena, RN Desean Heredia ea, RN RN jd3 Corrections: (The following items were deleted from the chart) 02:54 00:37 CORONAVIRUS+MR.LAB.BRZ ordered. EDNY EDNY 02:55 00:37 Influenza Screen (A \T\ B)+BA.LAB.BRZ ordered. [facility] EDNY 04:19 03:24 Hospitalization Ordered by Rob Rivera MD for Inpatient Admission. Preliminary diagnosis is Dyspnea; Chronic obstructive pulmonary disease with (acute) exacerbation; Pleural condition, unspecified - pleural /septal mass, right; Hypoxemia. Bed requested for Telemetry/MedSurg (Inpatient). Status is Inpatient Admission. Condition is Fair. Problem is new. Symptoms have improved. [facility] 12:18 04:19 02/27/2021 03:24 Hospitalization Ordered by Rob Rivera MD for Inpatient dw Admission. Preliminary diagnosis is Dyspnea; Chronic obstructive pulmonary disease with (acute) exacerbation; Pleural condition, unspecified - pleural /septal mass, right; Hypoxemia. Bed requested for [facility] ER HOLD. Status is Inpatient Admission. Condition is Fair. Problem is new. Symptoms have improved. 13:39 12:18 02/27/2021 03:24 Hospitalization Ordered by Rob Rivera MD for Inpatient jd3 Admission. Preliminary diagnosis is Dyspnea; Chronic obstructive pulmonary disease with (acute) exacerbation; Pleural condition, unspecified - pleural /septal mass, right; Hypoxemia. Bed requested for Telemetry/MedSurg (Inpatient). Status is Inpatient Admission. Condition is Fair. Problem is new. Symptoms have improved.
[2021-02-27 03:57] LABS: SARS-COV-2 RT PCR NEGATIVE (NEGATIVE)
[2021-02-27 06:47] VITALS: BMI 16.1
--- NOTE | 2021-02-27 07:29 | RAD REPORT ---
EXAM DESCRIPTION: Erich Single View02/27/2021 1:09 am CLINICAL HISTORY: Cough COMPARISON: 2019 FINDINGS: Extensive right pleural-based masses. Lungs are hyperaerated. The heart is normal size IMPRESSION: Extensive right pleural based masses probably metastatic disease. Mesothelioma is anoth er consideration
[2021-02-27] MEDS ORDERED: MORPHINE 2 MG/ML SYR IV PRN (07:50)
[2021-02-27] MEDS ORDERED: IPRATROPIUM BROM 0.5MG/2.5ML NEB PRN (07:50)
[2021-02-27] MEDS ORDERED: ACETAMINOPHEN 325 MG TABLET PO PRN (07:50)
[2021-02-27] MEDS ORDERED: ONDANSETRON 4 MG/2 ML VIAL IV PRN (07:50)
[2021-02-27] MEDS: ALBUTEROL 2.5 MG/3 ML NEB SOL NEB PRN (08:45)
[2021-02-27] MEDS ORDERED: ALBUTEROL 2.5 MG/3 ML NEB SOL ONE (08:54)
[2021-02-27] MEDS ORDERED: PIPER/TAZO/NS 3.375gm 3.375 GM/100 ML BAG IVPB SCH (09:00)
[2021-02-27] MEDS ORDERED: METHYLPREDNISOLONE 40 MG INJ IV SCH (09:00)
[2021-02-27] MEDS: FAMOTIDINE 20 MG/2 ML VIAL IV SCH ×2 (09:00→21:05)
[2021-02-27] MEDS ORDERED: PNEUMOCOCCAL VACCINE 0.5 ML IMVAC ONE (09:00)
[2021-02-27] MEDS: ASPIRIN EC 81 MG TAB PO SCH (09:00)
[2021-02-27] MEDS ORDERED: METHYLPREDNISOLONE 40 MG INJ ONE (10:02)
[2021-02-27] MEDS ORDERED: ASPIRIN EC 81 MG TAB PO ONE (10:02)
--- NOTE | 2021-02-27 10:21 | RAD REPORT ---
EXAM DESCRIPTION: CT - Chest For Pe Angio - 02/27/2021 6:48 am CLINICAL HISTORY: The patient is 75 years old and is Female; COPD;Chest pain TECHNIQUE: Axial computed tomographic angiography images of the chest with intravenous contrast. S agittal and coronal reformatted images were created and reviewed. This CT exam was performed using one or more of the following dose reduction techniques: automated exposure control, adjustment of t he mA and/or kV according to patient size, and/or use of iterative reconstruction technique. MIP re constructed images were created and reviewed. COMPARISON: No relevant prior studies available. FINDINGS: Pulmonary arteries: Unremarkable. No pulmonary embolism. Aorta: No acute findings. No thoracic aortic aneurysm. Lungs: Extensive emphysematous changes in the lungs bilaterally. No mass. Pleural space: Numerous pleural/septal based nodules/masses measuring up to 3 in the right hemit horax. No significant effusion. No pneumothorax. Heart: Unremarkable. No cardiomegaly. No significant pericardial effusion. No evidence of RV dysfunction. Bones/joints: No acute fracture. No dislocation. Soft tissues: Unremarkable. Lymph nodes: Prominent left supraclavicular lymph node measuring up to 1 cm in short axis diamet er. Kidneys and ureters: Partially visualized 3.3 cm cyst in the left kidney. ACR White Paper guidel cha (Herts, et al. JACR 2018; 15(2):264-273) suggest no follow-up is necessary. IMPRESSION: 1. Extensive emphysematous changes in the lungs bilaterally. 2. Numerous pleural/septal based nodules/masses measuring up to 3 in the right hemithorax. Findin gs are concerning for malignancy. 3. Prominent left supraclavicular lymph node measuring up to 1 cm in short axis diameter. Electronically signed by: Franky Pfeiffer MD 02/27/2021 2:46 AM CDT Due to temporary technical issues with the PACS/Fluency reporting system, reports are being signed by the in house radiologist without review as a courtesy to ensure prompt reporting. The interpreting r adiologist is fully responsible for the content of the report.
--- NOTE | 2021-02-27 11:51 | P.CNS ---
Date of Consult: 02/27/21 Reason for Consult: Shortness of breath possible mesothelioma Chief Complaint: Shortness of breath History of Present Illness: Patient is 75 years of age active smoker with a history of COPD came in with worsening shortness of breath admitted with hypoxemia she has had progressive worsening over the past month patient uses nebulizers at home Allergies Sulfa (Sulfonamide Antibiotics) Adverse Reaction (Verified 06/22/18 09:20) Hives/Rash Home Medications: Losartan Potassium [Cozaar] 25 mg PO DAILY 06/22/18 - Past Medical/Surgical History Diabetic: No -: osteoporosis -: asteoarthritis -: breast cancer with chemo and radiation -: -: tonsillectomy -: appy -: adenoids -: lumpectomy -: isthmusectomy - Family History Father Medical History: Cancer Mother Medical History: Stroke Sister Medical History: Cancer - Social History Smoking Status: Current every day smoker Alcohol use: No CD- Drugs: No Caffeine use: Yes Review of Systems 10-point ROS is otherwise unremarkable General: Weakness Respiratory: Shortness of Breath Physical Examination Temp Pulse Resp BP Pulse Ox 96 H 18 179/99 H 98 02/27/21 08:00 02/27/21 08:00 02/27/21 08:00 02/27/21 08:00 General: Alert, Oriented x3 Respiratory: Diminished, Expiratory wheezes Cardiovascular: No edema, Regular rate/rhythm Gastrointestinal: Normal bowel sounds, Soft and benign Laboratory Data (last 24 hrs) 02/27/21 00:44: PT 14.0 H, INR 1.21 02/27/21 00:44: WBC 11.60 H, Hgb 13.7, Hct 42.5, Plt Count 369 02/27/21 00:44: Sodium 138, Potassium 4.1, BUN 16, Creatinine 0.60, Glucose 110 H, Magnesium 2.1, Total Bilirubin 0.6, AST 41 H, ALT 28, Alkaline Phosphatase 241 H - Problems (1) COPD exacerbation Current Visit: Yes Status: Acute Plan: Patient is 75 years of age admitted with COPD exacerbation only uses nebulizers at home continues to smoke came in with mild hypoxemia no evidence of infection she has terminal COPD Dc antibiotics optimize bronchodilator therapy at home change to p.o. prednisone need a long-acting bronchodilator at home labs reviewed Dc antibiotics possible discharge tomorrow (2) Mesothelioma (pleural) Current Visit: Yes Status: Acute Plan: Patient has extensive mesolthelioma involving the right lung and extensive COPD changes prognosis poor patient really not a candidate for chemotherapy or surgery
--- NOTE | 2021-02-27 13:03 | P.HP ---
Certification for Inpatient Patient admitted to: Observation With expected LOS: <2 Midnights Practitioner: I am a practitioner with admitting privileges, knowledge of patient current condition, hospital course, and medical plan of care. Services: Services provided to patient in accordance with Admission requirements found in Title 42 Section 412.3 of the Code of Federal Regulations Patient History Date of Service: 02/27/21 Reason for admission: Shortness of breath History of Present Illness: DINESH HAS BEEN A HEAVY SMOKER ALL HER LIFE. I HAVE ADVISED TO QUIT SMOKING MANY TIMES. SHE IS DOWN TO 3 CIGARETTES A DAY. SHE DID NOT WANT TO TAKE ANY MEDS. SHE COMES WITH DYSPNEA AND WEAKNESS. SHE ALSO IS FOUND TO HAVE PLEURAL BASED MASSES THAT MOST LIKELY ARE CANCEROUS. THIS IS NEW TO HER. Allergies Sulfa (Sulfonamide Antibiotics) Adverse Reaction (Verified 06/22/18 09:20) Hives/Rash Home Medications: Losartan Potassium [Cozaar] 25 mg PO DAILY 06/22/18 - Past Medical/Surgical History Has patient received pneumonia vaccine in the past: No Diabetic: No -: osteoporosis -: asteoarthritis -: breast cancer with chemo and radiation -: -: tonsillectomy -: appy -: adenoids -: lumpectomy -: isthmusectomy - Family History Father -: Cancer Mother -: Stroke Sister -: Cancer - Social History Smoking Status: Unknown if ever smoked Alcohol use: No CD- Drugs: No Caffeine use: Yes Review of Systems General: Weakness Physical Examination - Vital Signs Blood Pressure: 149/91 Pulse: 83 Respirations: 18 Pulse Ox (%): 99 - Physical Exam General: Oriented x3, Cachectic, Mild distress HEENT: Atraumatic, PERRLA, Mucous membr. moist/pink, EOMI, Sclerae nonicteric Neck: Supple, 2+ carotid pulse no bruit, No LAD, Without JVD or thyroid abnormality Respiratory: Diminished Cardiovascular: Regular rate/rhythm, Normal S1 S2 Gastrointestinal: Normal bowel sounds, No tenderness Musculoskeletal: No tenderness Integumentary: No rashes Neurological: Normal gait, Normal speech, Normal strength at 5/5 x4 extr, Normal tone, Normal affect Lymphatics: No axilla or inguinal lymphadenopathy - Studies Laboratory Data (last 24 hrs) 02/27/21 00:44: PT 14.0 H, INR 1.21 02/27/21 00:44: WBC 11.60 H, Hgb 13.7, Hct 42.5, Plt Count 369 02/27/21 00:44: Sodium 138, Potassium 4.1, BUN 16, Creatinine 0.60, Glucose 110 H, Magnesium 2.1, Total Bilirubin 0.6, AST 41 H, ALT 28, Alkaline Phosphatase 241 H Assessment and Plan - Problems (Diagnosis) (1) Pleural malignant neoplasm Current Visit: Yes Status: Acute Plan: THIS IS MOST LIKELY CANCER. SHE IS A HEAVY SMOKER. SHE IS NOT A CANDIDATE FOR CHEMO. SHE IS NOT WANTING IT ANY WAY. I ADVISED BIOPSY IF SHE WANTS TO CONFIRM. SHE WILL TALK TO HER FAMILY. (2) COPD exacerbation Current Visit: Yes Status: Acute Plan: CHRONIC. CONTINUE STEROIDS NEBS. - Advance Directives Does patient have a Living Will: No Does patient have a Durable POA for Healthcare: No
[2021-02-27] MEDS: IPRATROPIUM BROM 0.5MG/2.5ML NEB SCH ×2 (15:07→21:05)
[2021-02-27] MEDS ORDERED: APIXABAN 5 MG TABLET PO SCH (21:00)
[2021-02-27] MEDS ORDERED: ENOXAPARIN 40 MG/0.4 ML SQ SCH (21:00)
[2021-02-27] MEDS: predniSONE 20 MG TAB PO SCH (21:04)
[2021-02-27] MEDS: ARFORMOTEROL TARTRATE 15 MCG/2 ML VIAL.NEB NEB SCH (21:05)
[2021-02-28] MEDS: IPRATROPIUM BROM 0.5MG/2.5ML NEB SCH ×3 (01:38→13:30)
[2021-02-28] MEDS: METOPROLOL XL 25 MG TAB PO SCH ×2 (02:50→06:00)
[2021-02-28 05:32] LABS: Absolute Lymphocytes (CBC) 1.1 K/uL (0.7-4.9); Basophils % 0.1 % (0-1.3); Hematocrit 37.6 % (36.0-45.0); Lymphocytes % 9.9 % (15.3-44.8); MPV 8.2 fL (7.6-11.3); RBC Red Blood Cell Count 4.29 M/uL (3.86-4.86)
[2021-02-28 06:19] LABS: BUN Blood Urea Nitrogen 17 mg/dL (7-18); Bicarbonate 27 mmol/L (21-32); Glucose Level 116 mg/dL (74-106); Potassium 4.4 mmol/L (3.5-5.1); Sodium Level 140 mmol/L (136-145)
[2021-02-28] MEDS: ALBUTEROL 2.5 MG/3 ML NEB SOL NEB PRN (08:30)
[2021-02-28] MEDS: ARFORMOTEROL TARTRATE 15 MCG/2 ML VIAL.NEB NEB SCH (08:30)
[2021-02-28] MEDS ORDERED: LETROZOLE 2.5 MG TAB PO SCH (09:00)
[2021-02-28] MEDS ORDERED: LOSARTAN POTASSIUM 50 MG TABLET PO SCH (09:00)
[2021-02-28] MEDS: ASPIRIN EC 81 MG TAB PO SCH (09:53)
[2021-02-28] MEDS: predniSONE 20 MG TAB PO SCH (09:53)
[2021-02-28] MEDS: FAMOTIDINE 20 MG/2 ML VIAL IV SCH (09:57)
[2021-02-28 11:58] VITALS: TEMP 97.2
--- NOTE | 2021-02-28 13:49 | P.DS ---
Admission Date: 02/27/21 Discharge Date: 02/28/21 Disposition: ROUTINE DISCHARGE Discharge Condition: SERIOUS Reason for Admission: Shortness of breath - Problems (1) Pleural malignant neoplasm Current Visit: Yes Status: Acute (2) COPD exacerbation Current Visit: Yes Status: Acute Brief History of Present Illness: DINESH HAS BEEN A HEAVY SMOKER ALL HER LIFE. I HAVE ADVISED TO QUIT SMOKING MANY TIMES. SHE IS DOWN TO 3 CIGARETTES A DAY. SHE DID NOT WANT TO TAKE ANY MEDS. SHE COMES WITH DYSPNEA AND WEAKNESS. SHE ALSO IS FOUND TO HAVE PLEURAL BASED MASSES THAT MOST LIKELY ARE CANCEROUS. THIS IS NEW TO HER. Hospital Course: DINESH HAS SEVERE COPD FROM HEAVY SMOKING. SHE UNFORTUNATELY ALSO HAS PLEURAL BASED MASSES, SEEMS METASTATIC CANCER. SHE HAS HAD BREAST CANCER BEFORE. SHE WANTS TO TALK TO DAUGHTERS BEFORE DECISION. SHE HAS CHOICE TO GO TO [place] FOR BIOPSY DR. THOMAS TOLD ME THEY CAN'T DO IT HERE. SHE HAS OTHER CHOICE OF HOSPICE AND I UNDERSTAND THAT IS A BETTER OPTION FOR HER SHE IS 75 WITH SEVERE COPD AND WILL NOT TOLERATE ANY CHEMO AND DOES NOT WISH TO HAVE IT. SHE WILL LET ME KNOW WHAT SHE WANTSTO DO. I AM GIVING HER STEROIDS ORALLY IN ADDITION TO NEBULIZER SHE HAS AT HOME. Vital Signs/Physical Exam: Temp Pulse Resp BP Pulse Ox 97.2 F 77 16 170/81 H 99 02/28/21 11:57 02/28/21 11:57 02/28/21 11:57 02/28/21 11:57 02/28/21 11:57 Laboratory Data at Discharge: WBC 10.80 K/uL (4.3-10.9) 02/28/21 03:55 Hgb 12.3 g/dL (12.0-15.0) 02/28/21 03:55 Hct 37.6 % (36.0-45.0) 02/28/21 03:55 Plt Count 364 K/uL (152-406) 02/28/21 03:55 PT 14.0 SECONDS (9.5-12.5) H 02/27/21 00:44 INR 1.21 02/27/21 00:44 Sodium 140 mmol/L (136-145) 02/28/21 03:55 Potassium 4.4 mmol/L (3.5-5.1) 02/28/21 03:55 BUN 17 mg/dL (7-18) 02/28/21 03:55 Creatinine 0.54 mg/dL (0.55-1.3) L 02/28/21 03:55 Glucose 116 mg/dL (74-106) H 02/28/21 03:55 Magnesium 2.1 mg/dL (1.8-2.4) 02/27/21 00:44 Total Bilirubin 0.6 mg/dL (0.2-1.0) 02/27/21 00:44 AST 41 U/L (15-37) H 02/27/21 00:44 ALT 28 U/L (12-78) 02/27/21 00:44 Alkaline Phosphatase 241 U/L (45-117) H 02/27/21 00:44 Troponin I 0.05 ng/mL (0.0-0.045) H 02/27/21 15:17 Home Medications: Losartan Potassium [Cozaar*] 25 mg PO DAILY 06/22/18 Alendronate Sodium 70 mg PO EVERY 7TH DAY 02/27/21 Atorvastatin Calcium [Lipitor*] 10 mg PO BEDTIME 02/27/21 Letrozole [Femara*] 2.5 mg PO DAILY 02/27/21 Metoprolol Succinate [Toprol Xl*] 25 mg PO [id number] #90 tab 02/28/21 predniSONE [Deltasone] 20 mg PO DAILY #90 tab 02/28/21 New Medications: predniSONE [Deltasone] 20 mg PO DAILY #90 tab Metoprolol Succinate [Toprol Xl*] 25 mg PO [id number] #90 tab Followup: Rob Rivera MD [ACTIVE - CAN ADMIT] - (call to schedule appointment)
[2021-02-28 14:25] VITALS: BP 140/77
[2021-02-28 15:59] VITALS: O2SAT 94
[2021-02-28] MEDS ORDERED: ATORVASTATIN 10 MG TAB PO SCH (21:00)
[2021-03-06] MEDS ORDERED: ALENDRONATE 70 MG TAB PO SCH (07:30)
== END 2021-02-28 15:27 | disposition home or self-care (01) | DRG 191 ==
LOC: ER 00:27 → ERHOLD 03:32 → 4TH 13:03
PROVIDERS: ADMIT Internal Medicine; ATTEND Internal Medicine
DX: J44.1 Chronic obstructive pulmonary disease with (acute) exacerbation (principal); R64 Cachexia; Z68.1 Body mass index [BMI] 19.9 or less, adult; C45.0 Mesothelioma of pleura; R09.02 Hypoxemia; I10 Essential (primary) hypertension; Z92.3 Personal history of irradiation; F17.210 Nicotine dependence, cigarettes, uncomplicated; Z85.3 Personal history of malignant neoplasm of breast; Z92.21 Personal history of antineoplastic chemotherapy; Z88.2 Allergy status to sulfonamides
CPT/HCPCS: 0240U; 36415; 71045; 71275; 80048; 80076; 82805; 83735; 83880; 84484; 85025; 85610; 87040; 93005; 94640; 94760; 96365; 96375; 99285; J1100; J1650; J2543; J2920; J7512; J7605; Q9967